=== PATIENT | male | born 1965 | race Caucasian/White ===

== ENCOUNTER 2021-02-01 08:35 | Outpatient (REF) | payer OTHER, SELFPAY ==
[2021-02-01 09:15] LABS: Hematocrit 44.9 % (42-52); Hemoglobin 15.6 g/dl (14.0-18.0); Mean Corpuscular HGB Conc 34.7 g/dl (31.0-36.0); Mean Corpuscular Hemoglobin 30.5 pg (27.0-33.0); Mean Corpuscular Volume 87.9 fL (80-98); Mean Platelet Volume 9.6 fL (9.4-12.4); Platelet Count 190 X10*3/uL (160-400); Red Blood Count 5.11 X10*6/uL (4.60-5.80); Red Cell Distribution Width 12.3 % (11.0-16.0); White Blood Count 6.4 X10*3/uL (4.8-10.8)
[2021-02-01 09:29] LABS: Glucose Urine UA NEG (NEG); Leukocyte Esterase Urine NEG (NEG); Nitrite Urine NEG (NEG); Specific Gravity - Urine >= 1.030 (1.005-1.025); Urine Blood TRACE (NEG); Urine Ketones NEG (NEG); Urine Protein NEG (NEG-TRACE)
[2021-02-01 09:30] LABS: Appearance Urine CLEAR; Color Urine YELLOW
[2021-02-01 09:46] LABS: Mucus Urine 1+ /LPF; RBC Urine 0-2 /HPF (0); WBC Urine 0-2 /HPF (0-4)
[2021-02-01 09:52] LABS: Alanine Aminotransferase 47 U/L (0-40); Albumin Level 4.3 g/dL (3.5-5.0); Alkaline Phosphatase 67 U/L (39-117); Anion Gap 11 (12-20); Aspartate Amino Transferase 23 U/L (5-37); Bilirubin Direct 0.3 mg/dL (0.0-0.5); Bilirubin Total 0.8 mg/dL (0.0-1.0); Blood Urea Nitrogen 23 mg/dL (9-16); C Reactive Protein 0.77 mg/dL (< or = 0.50); Calcium 9.1 mg/dL (8.4-10.2); Carbon Dioxide 28 mmol/L (22-29); Chloride 106 mmol/L (96-108); Cholesterol 196 mg/dL; Estimated Glomerular Filt Rate > 60; Glucose Random 108 mg/dL (60-115); HDL Cholesterol 43 mg/dL; LDL Cholesterol Calculated 119 mg/dl; Potassium 4.3 mmol/L (3.3-5.1); Sodium 141 mmol/L (135-145); Total Protein 6.8 g/dL (6.5-8.0); Triglycerides 174 mg/dL
[2021-02-07 16:47] LABS: Testosterone, Total 325 ng/dL (250-1100)
== END 2021-02-01 08:36 | disposition home or self-care (01) ==
LOC: HO.LAB 08:35
PROVIDERS: PCP Internal Medicine; Visit Provider Internal Medicine
DX: H46.9 Unspecified optic neuritis (principal); I10 Essential (primary) hypertension; R53.83 Other fatigue
CPT/HCPCS: 36415; 80048; 80061; 80076; 81001; 84402; 84403; 84443; 85027; 86140

== ENCOUNTER 2021-12-27 14:49 | Outpatient (REF) | payer OTHER, SELFPAY ==
[2021-12-27 15:50] LABS: Hematocrit 43.5 % (42.0-52.0); Hemoglobin 14.9 g/dl (14.0-18.0); Mean Corpuscular HGB Conc 34.3 g/dl (31.0-36.0); Mean Corpuscular Hemoglobin 30.7 pg (27.0-33.0); Mean Corpuscular Volume 89.5 fL (80.0-98.0); Platelet Count 180 X10*3/uL (160-400); Red Blood Count 4.86 X10*6/uL (4.60-5.80); Red Cell Distribution Width 12.9 % (11.0-16.0); White Blood Count 7.2 X10*3/uL (4.8-10.8)
[2021-12-27 16:11] LABS: Alanine Aminotransferase 17 U/L (0-40); Albumin Level 4.3 g/dL (3.5-5.0); Alkaline Phosphatase 58 U/L (39-117); Anion Gap 13 (12-20); Aspartate Amino Transferase 17 U/L (5-37); Bilirubin Direct 0.5 mg/dL (0.0-0.5); Bilirubin Total 1.6 mg/dL (0.0-1.0); Blood Urea Nitrogen 16 mg/dL (9-16); Carbon Dioxide 25 mmol/L (22-29); Chloride 105 mmol/L (96-108); Cholesterol 188 mg/dL; Estimated Glomerular Filt Rate > 60; Glucose Random 82 mg/dL (60-115); HDL Cholesterol 50 mg/dL; LDL Cholesterol Calculated 121 mg/dl; Potassium 4.1 mmol/L (3.3-5.1); Sodium 139 mmol/L (135-145); Total Protein 6.6 g/dL (6.5-8.0); Triglycerides 86 mg/dL
[2021-12-27 16:32] LABS: Thyroid Stimulating Hormone 0.98 uIU/mL (0.32-4.0)
[2021-12-27 18:09] LABS: Appearance Urine CLEAR; Color Urine YELLOW; Glucose Urine UA NEG (NEG); Leukocyte Esterase Urine NEG (NEG); Nitrite Urine NEG (NEG); Urine Blood NEG (NEG); Urine Ketones NEG (NEG); Urine Protein NEG (NEG-TRACE)
== END 2021-12-27 14:50 | disposition home or self-care (01) ==
LOC: HO.LAB 14:49
PROVIDERS: PCP Internal Medicine; Visit Provider Internal Medicine
DX: I10 Essential (primary) hypertension (principal)
CPT/HCPCS: 36415; 80048; 80061; 80076; 81003; 84443; 85027

== ENCOUNTER 2022-07-04 15:51 | Outpatient (REF) | payer OTHER, SELFPAY ==
[2022-07-04 17:57] LABS: Appearance Urine Clear; Color Urine Yellow; Glucose Urine UA Negative (Negative); Leukocyte Esterase Urine Trace (Negative); Nitrite Urine Negative (Negative); PH 5.5 (5.0-9.0); UMIC TRIGGER UA YES; Urine Blood Negative (Negative); Urine Ketones Negative (Negative); Urine Protein Negative (Neg-Trace)
[2022-07-04 18:03] LABS: Bacteria Urine None Seen (None Seen); Hyaline Casts Urine 0-2 /LPF (0-2); RBC Urine 0-2 /HPF (0-2); Squamous Epithelial Cell Urine 0-2 /HPF (0-2); WBC Urine 0-5 /HPF (0-5)
[2022-07-04 18:19] LABS: Alanine Aminotransferase 25 U/L (0-40); Albumin Level 4.5 g/dL (3.5-5.0); Alkaline Phosphatase 66 U/L (39-117); Anion Gap 15 (12-20); Aspartate Amino Transferase 19 U/L (5-37); Bilirubin Direct 0.4 mg/dL (0.0-0.5); Bilirubin Total 1.4 mg/dL (0.0-1.0); Blood Urea Nitrogen 17 mg/dL (9-16); Calcium 9.3 mg/dL (8.4-10.2); Carbon Dioxide 28 mmol/L (22-29); Chloride 101 mmol/L (96-108); Cholesterol 215 mg/dL; Estimated Glomerular Filt Rate > 60; Glucose Random 83 mg/dL (60-115); HDL Cholesterol 47 mg/dL; LDL Cholesterol Calculated 142 mg/dl; Sodium 140 mmol/L (135-145); Total Protein 7.1 g/dL (6.5-8.0); Triglycerides 130 mg/dL
[2022-07-04 18:24] LABS: Hemoglobin 15.5 g/dl (14.0-18.0); Mean Corpuscular HGB Conc 34.4 g/dl (31.0-36.0); Mean Corpuscular Hemoglobin 30.8 pg (27.0-33.0); Mean Corpuscular Volume 89.3 fL (80.0-98.0); Mean Platelet Volume 9.9 fL (9.4-12.4); Platelet Count 203 X10*3/uL (160-400); Red Blood Count 5.04 X10*6/uL (4.60-5.80); Red Cell Distribution Width 12.4 % (11.0-16.0); White Blood Count 7.6 X10*3/uL (4.8-10.8)
[2022-07-04 18:35] LABS: Prostate Specific Antigen Scr 2.96 ng/mL (<0.05-4.0); Thyroid Stimulating Hormone 2.18 uIU/mL (0.32-4.0)
== END 2022-07-04 15:52 | disposition home or self-care (01) ==
LOC: HO.LAB 15:51
PROVIDERS: PCP Internal Medicine; Visit Provider Internal Medicine
DX: Z00.00 Encounter for general adult medical examination without abnormal findings (principal); Z12.5 Encounter for screening for malignant neoplasm of prostate; I10 Essential (primary) hypertension
CPT/HCPCS: 36415; 80048; 80061; 80076; 81001; 84153; 84443; 85027

== ENCOUNTER 2022-07-19 10:27 | Day surgery (SDC) | payer OTHER, SELFPAY ==
[2022-07-19 10:40] VITALS: BMI 29.2
[2022-07-19 10:44] VITALS: BP 120/93; PULSE 85; RESP 20; TEMP 36.5; O2SAT 96
[2022-07-19] MEDS: Lactated Ringers 1,000 ML 80 ML IVCONT (10:59)
[2022-07-19 12:35] VITALS: BP 103/61; PULSE 71; RESP 17; TEMP 36.6; O2SAT 97
--- NOTE | 2022-07-19 12:36 | P.BOP_ITS ---
Brief Operative Note Date of Service: 07/19/22 Pre-op diagnosis: Screening Post-op diagnosis: other (Colon polyp) Procedure: Colonoscopy to the cecum and TI with hot snare polypectomy Surgeon: Ranjit Zhou Anesthesia: MAC Was an [employer] Supervisor used for this Procedure?: No Estimated blood loss (mL): 0 Pathology: other (A. Ascending colon polyp) Condition: stable Disposition: PACU
[2022-07-19 12:50] VITALS: BP 114/87; PULSE 77; RESP 16; TEMP 36.6; O2SAT 97
--- NOTE | 2022-07-19 14:12 | OP_ITS ---
SURGEON: Ranjit Zhou MD INDICATIONS: The patient presents for evaluation of colorectal cancer screening and prior history of colon polyps. Full consent has been obtained from him for this, including risks of bleeding and perforation. PREOPERATIVE DIAGNOSIS: POSTOPERATIVE DIAGNOSIS: PROCEDURE PERFORMED: Colonoscopy to the cecum and terminal ileum with hot snare polypectomy. ESTIMATED BLOOD LOSS: COMPLICATIONS: ANESTHESIA: Monitored anesthesia care. ASSISTANTS: SPECIMENS: PREOPERATIVE DIAGNOSES: Colorectal cancer screening and prior history of colon polyps. POSTOPERATIVE DIAGNOSES: Colorectal cancer screening and prior history of colon polyps, diverticulosis and internal hemorrhoids. DESCRIPTION OF PROCEDURE: The patient was placed in the left lateral decubitus position. The digital rectal exam revealed no abnormalities. The Olympus video pediatric colonoscope was entered into the rectum and advanced easily to the cecum. Once in the cecum, I did identify normal-appearing cecal pouch with appendiceal orifice and a normal-appearing ileocecal valve. The terminal ileum was cannulated and it appeared normal. The scope was withdrawn back in the colon. The entire cecum and ileocecal valve appeared normal. The scope was slowly withdrawn assessing all mucosal surface carefully. Preparation was excellent. In the ascending colon, there was an approximately 8 mm polyp which was removed by hot snare polypectomy and recovered by suction. The polypectomy site appeared clean, without any sign of residual polyp nor bleeding. I did not visualize any other polyps, colitis nor angiodysplasia. There was a mild amount of sigmoid diverticulosis. In the rectum, the scope was retroflexed visualizing small internal hemorrhoids, but no other pathology. The rectal mucosa appeared normal. The scope was straightened. Of note, between 20 and 30 cm were 2 previously placed submucosal ink kidd. The scope was withdrawn from the patient. He tolerated the procedure well and was returned to the recovery area in stable condition. IMPRESSION: 1. Colon polyps. 2. Diverticulosis. 3. Internal hemorrhoids. PLAN: The results of the pathology will be checked. I would recommend repeat colonoscopy in 3 years for further surveillance. He was advised to not to use any aspirin or NSAIDs for 1 week. MD PATRICIO Dunaway/SOLIS / [phone]
== END 2022-07-19 13:28 | disposition home or self-care (01) ==
PROVIDERS: PCP Internal Medicine; Visit Provider Internal Medicine
PROC: 0DJD8ZZ Inspection of Lower Intestinal Tract, Via Natural or Artificial Opening Endoscopic (ICD-10-PCS; CPT 45378; principal; 2022-07-19 11:40)
DX: Z12.11 Encounter for screening for malignant neoplasm of colon (principal); Z86.010 Personal history of colon polyps; D12.2 Benign neoplasm of ascending colon; K57.30 Diverticulosis of large intestine without perforation or abscess without bleeding; K64.8 Other hemorrhoids; I10 Essential (primary) hypertension; Z79.899 Other long term (current) drug therapy
CPT/HCPCS: 45385; 88305

== ENCOUNTER 2023-01-02 15:06 | Outpatient (AMB) | payer OTHER, SELFPAY ==
--- NOTE | 2023-01-02 15:08 | A.OFFPC_ITS ---
Vital Signs 01/02/23 15:11 Height 5 ft 11 in Weight 234 lb 2 oz BMI 32.7 BP 110/74 Blood Pressure Location Lt brachial Position Sitting Pulse 82 Pulse Source Pulse Oximeter Pulse Oximetry (%) 92 Oxygen Delivery Method Room Air Intake Visit Reasons: 6mth f/u Intake Note: Patient is here to follow up on HTN. Emergency Room Clinician Required: No Product Consultant: Not Required per policy Accompanied by: Self / Same As Patient Allergies No Known Allergies Allergy (Verified 01/03/23 07:43) Medication List - Last Reconciled 01/03/23 by Charly Heredia MD atorvastatin 10 mg PO BEDTIME lisinopril 10 mg PO DAILY meloxicam 15 mg PO DAILY rzdwnkll-[id number]-MH 3.5-10,000-1 mg/mL-unit/mL-% 4 drps otic (ears) Q8H Tobacco use date assessed: 01/02/23 Dental Screening Dental Screen Date: 01/02/23 Did you have a dental visit in the last 12 months?: Yes Did you have a dental problem in the last 6 months where you did not have access to dental care?: No Was dental information given to patient?: Patient has dentist HPI 6mth f/u HPI Details 57-year-old male presents to the office to discuss his chronic medical issues. Patient is now complaining of pain in the left hand in the past 2 weeks. Does not recall any fall or injury. Morning stiffness present. Nonspecific pain in the joints all over. Fatigue symptoms present. Right ear is blocked. He has swelling and tenderness just outside the ear canal. Patient vision has been stable. Right eye cannot be corrected. Optic neuritis is stable. [facility] Medical History Bilateral hearing loss Fatigue Hypertension Left optic neuritis Lipoma of anterior chest wall Lyme disease Osteoarthritis Sigmoidoscopy exam Surgical History H/O rectal polypectomy History of ankle surgery Family History Father Leukemia Mother No problems noted. Brother Substance use disorder Social History Housing: House Alcohol intake: current Alcohol intake frequency: a few times a week Patient Tobacco Use Status: Never used Tobacco e-Cigarette/Vaping Use: Never Used Second Hand Smoke Exposure: No service: No Current occupational status: employed Cognitive needs: No Hearing needs: No Vision needs: No Questionnaire Thrive Questionnaire Date Thrive assessed: 07/04/22 MEGHNA-7 AMB Questionnaire MEGHNA-7 Date MEGHNA - 7 assessed: 07/04/22 Source: Developed by Drs. Ranjit Fortune, Elli Lopez, Robinson Watkins and colleagues, with an educational carolann from [employer]. Physical exam (Primary Care) Vital Signs: Last Vital Signs Pulse 82 01/02/23 15:11 BP 110/74 01/02/23 15:11 Pulse Ox 92 01/02/23 15:11 Oxygen Delivery Method Room Air 01/02/23 15:11 BMI result Body Mass Index 32.7 Tobacco/Smoking Status: Tobacco use Status Tobacco use date assessed 01/02/23 01/02/23 15:15 Patient Tobacco Use Status Never used Tobacco 01/02/23 15:09 e-Cigarette/Vaping Use Never Used 01/02/23 15:09 Thrive Assessment: Date of Thrive Assessment Date Thrive assessed 07/04/22 01/02/23 15:09 Const General: cooperative, healthy appearing and comfortable HENNC Other: Right ear: The opening of the ear canal is swollen and slightly tender. Tympanic membrane is visualized. Ear canal appears slightly congested. Head: Yes normal to inspection and Yes atraumatic Eyes General: appearance normal, both eyes and all related structures Neck Neck: Yes normal visual inspection and Yes full ROM Chest Other: Chest: Small lump just beneath the right clavicle. Margins are indeterminate and slightly movable. Soft to firm consistency. Nontender. Chest palpation & inspection: normal inspection of the chest Resp Effort & Inspection: normal respiratory effort Auscultation: clear to auscultation bilaterally Cardio Jugular venous distension: no JVD Palpation: normal PMI Rate: regular rate Heart sounds: S1 normal heart sound present and S2 normal heart sound present GI Palpation (GI): Soft to palpation and No hepatosplenomegaly present Extrem General: Yes normal to inspection and Yes full ROM Assessment and Plan Assessment & Plan (1) Left optic neuritis: Code(s): H46.9 - Unspecified optic neuritis Plan: Condition is stable. (2) Hypertension: Code(s): I10 - Essential (primary) hypertension Qualifiers: Hypertension type: unspecified Qualified Code(s): I10 - Essential (primary) hypertension Plan: Blood pressure is stable. Continue medications same dosage. (3) Osteoarthritis: Code(s): M19.90 - Unspecified osteoarthritis, unspecified site Plan: New symptoms could represent osteoarthritis. Patient was advised to take anti- inflammatories till a rheumatology appointment is obtained. (4) Lyme disease: Code(s): A69.20 - Lyme disease, unspecified Plan: No new sequelae. (5) Lipoma of anterior chest wall: Code(s): D17.1 - Benign lipomatous neoplasm of skin and subcutaneous tissue of trunk Plan: Swelling on the chest appears to be a lipoma. An ultrasound of the swelling will be done to confirm the diagnosis. Possible excision after the diagnosis is confirmed. Orders: Orders Basic Metabolic Panel 01/02/23 D17.1 - Benign lipomatous neoplasm of skin and subcutaneous tissue of trunk, H46.9 - Unspecified optic neuritis, I10 - Essenti al (primary) hypertension, M19.90 - Unspecified osteoarthritis, unspecified site C Reactive Protein 01/02/23 D17.1 - Benign lipomatous neoplasm of skin and subcutaneous tissue of trunk, H46.9 - Unspecified optic neuritis, I10 - Essential (primary) hypertension, M19.90 - Unspecified osteoarthritis, unspecified site US chest 01/02/23 D17.1 - Benign lipomatous neoplasm of skin and subcutaneous tissue of trunk, H46.9 - Unspecified optic neuritis, I10 - Essential (primary) hypertension, M19.90 - Unspecified osteoarthritis, unspecified site Lipid Panel 01/02/23 D17.1 - Benign lipomatous neoplasm of skin and subcutaneous tissue of trunk, H46.9 - Unspecified optic neuritis, I10 - Essential (primary) hypertension, M19.90 - Unspecified osteoarthritis, unspecified site Liver Panel 01/02/23 D17.1 - Benign lipomatous neoplasm of skin and subcutaneous tissue of trunk, H46.9 - Unspecified optic neuritis, I10 - Essential (primary) hypertension, M19.90 - Unspecified osteoarthritis, unspecified site Thyroid Stimulating Hormone 01/02/23 D17.1 - Benign lipomatous neoplasm of skin and subcutaneous tissue of trunk, H46.9 - Unspecified optic neuritis, I10 - Essential (primary) hypertension, M19.90 - Unspecified osteoarthritis, unspecified site Complete Blood Count no Diff 01/02/23 D17.1 - Benign lipomatous neoplasm of skin and subcutaneous tissue of trunk, H46.9 - Unspecified optic neuritis, I10 - Essential (primary) hypertension, M19.90 - Unspecified osteoarthritis, unspecified site UA and rflx microscopic 01/02/23 D17.1 - Benign lipomatous neoplasm of skin and subcutaneous tissue of trunk, H46.9 - Unspecified optic neuritis, I10 - Essential (primary) hypertension, M19.90 - Unspecified osteoarthritis, unspecified site Referrals Rheumatology Referral A69.20 - Lyme disease, unspecified, H46.9 - Unspecified optic neuritis, M19.90 - Unspecified osteoarthritis, unspecified site Medications: New dleyreno-zyptgyzuv-ZI 3.5-10,000-1 mg/mL-unit/mL-% 4 drps otic (ears) Q8H 10 mL 0RF meloxicam 15 mg PO DAILY 14 tabs 0RF Coding Level of Care Code Est Pt Level 4 (41702) Diagnoses Left optic neuritis H46.9 Hypertension I10 Hypertension type: unspecified Osteoarthritis M19.90 Lyme disease A69.20 Lipoma of anterior chest wall D17.1
[2023-01-02 15:11] VITALS: BP 110/74; PULSE 82; O2SAT 92; BMI 32.7
== END 2023-01-02 15:56 | disposition home or self-care (01) ==
PROVIDERS: PCP Internal Medicine; Visit Provider Internal Medicine
DX: H46.9 Unspecified optic neuritis (principal); I10 Essential (primary) hypertension; M19.90 Unspecified osteoarthritis, unspecified site; A69.20 Lyme disease, unspecified; D17.1 Benign lipomatous neoplasm of skin and subcutaneous tissue of trunk
CPT/HCPCS: 99214

== ENCOUNTER 2023-01-02 16:02 | Outpatient (REF) | payer OTHER, SELFPAY ==
[2023-01-02 18:09] LABS: Hematocrit 44.9 % (42.0-52.0); Hemoglobin 15.1 g/dl (14.0-18.0); Mean Corpuscular HGB Conc 33.6 g/dl (31.0-36.0); Mean Corpuscular Hemoglobin 30.4 pg (27.0-33.0); Mean Corpuscular Volume 90.5 fL (80.0-98.0); Mean Platelet Volume 10.3 fL (9.4-12.4); Platelet Count 180 X10*3/uL (160-400); Red Blood Count 4.96 X10*6/uL (4.60-5.80); Red Cell Distribution Width 12.5 % (11.0-16.0)
[2023-01-02 18:41] LABS: Alanine Aminotransferase 26 U/L (0-40); Albumin Level 4.5 g/dL (3.5-5.0); Alkaline Phosphatase 60 U/L (39-117); Anion Gap 18 (12-20); Aspartate Amino Transferase 19 U/L (5-37); Bilirubin Direct 0.4 mg/dL (0.0-0.5); Bilirubin Total 1.2 mg/dL (0.0-1.0); Blood Urea Nitrogen 24 mg/dL (9-16); C Reactive Protein 0.27 mg/dL (< or = 0.50); Calcium 9.1 mg/dL (8.4-10.2); Carbon Dioxide 22 mmol/L (22-29); Chloride 104 mmol/L (96-108); Cholesterol 161 mg/dL; Estimated Glomerular Filt Rate > 60; Glucose Random 81 mg/dL (60-115); HDL Cholesterol 51 mg/dL; LDL Cholesterol Calculated 93 mg/dl; Potassium 3.6 mmol/L (3.3-5.1); Sodium 140 mmol/L (135-145); Total Protein 7.3 g/dL (6.5-8.0); Triglycerides 88 mg/dL
[2023-01-02 18:56] LABS: Thyroid Stimulating Hormone 2.24 uIU/mL (0.32-4.0)
[2023-01-02 19:02] LABS: Appearance Urine Clear; Color Urine Yellow; Glucose Urine UA Negative (Negative); Leukocyte Esterase Urine Negative (Negative); Nitrite Urine Negative (Negative); PH 5.5 (5.0-9.0); Specific Gravity - Urine 1.025 (1.005-1.025); Urine Blood Negative (Negative); Urine Ketones Negative (Negative); Urine Protein Negative (Neg-Trace)
== END 2023-01-02 16:03 | disposition home or self-care (01) ==
LOC: HO.LAB 16:02
PROVIDERS: PCP Internal Medicine; Visit Provider Internal Medicine
DX: M19.90 Unspecified osteoarthritis, unspecified site (principal); D17.1 Benign lipomatous neoplasm of skin and subcutaneous tissue of trunk; H46.9 Unspecified optic neuritis; I10 Essential (primary) hypertension
CPT/HCPCS: 36415; 80048; 80061; 80076; 81003; 84443; 85027; 86140

== ENCOUNTER 2023-01-16 14:49 | Outpatient (REF) | payer OTHER, SELFPAY ==
--- NOTE | ~2023-01-16 | US_ITS ---
EXAMINATION: US CHEST CLINICAL INFORMATION: Anterior chest wall lipoma. Upper right chest infraclavicular mass. COMPARISON: Chest radiograph dated 06/15/2018. TECHNIQUE: Grayscale, Doppler, and cine images were obtained at the right upper chest. FINDINGS: In the region of the patient's palpable finding there is an ovoid, encapsulated focus which measures 4.0 x 1.8 x 3.6 cm in the subcutaneous tissues. This demonstrates heterogeneous echogenicity, similar to the adjacent fat. No significant Doppler detectable vascular flow. No additional soft tissue mass or fluid collection. US/US chest IMPRESSION: Probable lipoma in the region of the patient's palpable findings measuring up to 4.0 cm. If there is significant interval increase in size or focal symptomatology, cross-sectional imaging such as MRI without and with contrast could help further evaluate.
== END 2023-01-16 14:50 | disposition home or self-care (01) ==
LOC: HO.US 14:49
PROVIDERS: PCP Internal Medicine; Visit Provider Internal Medicine
DX: M19.90 Unspecified osteoarthritis, unspecified site (principal); D17.1 Benign lipomatous neoplasm of skin and subcutaneous tissue of trunk; H46.9 Unspecified optic neuritis; I10 Essential (primary) hypertension
CPT/HCPCS: 76604

== ENCOUNTER 2023-02-24 09:29 | Outpatient (AMB) | payer OTHER, SELFPAY ==
--- NOTE | 2023-02-24 09:52 | MHC.OFFVIS ---
Intake Vital Signs 02/24/23 09:53 Height 5 ft 11 in Weight 239 lb 13.807 oz BMI 33.5 BP 146/92 H Blood Pressure Location Rt brachial Position Sitting Pulse 76 Pulse Source Pulse Oximeter Temp 98.3 F Temp Source Skin Pulse Oximetry (%) 96 Oxygen Delivery Method Room Air Intake Visit Reasons: Lyme/OA Intake Note: New patient here for Lyme/OA. c/o morning right shoulder, morning mary leg R>L. (all are on and off), mary hand pain. Division [employer] Supervisor Required: No Accompanied by: Self / Same As Patient Allergies No Known Allergies Allergy (Verified 02/24/23 09:52) HPI HPI Comments History of Present Illness Details Patient presents for evaluation of right shoulder and leg pain. For about 2 or 3 months now he has been having some pain in the right shoulder. It seems to come on when he lies on the shoulder at night or lifts the arm up overhead. 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 There was no discrete injury noted of the knees however. The leg pain is a bit unusual. This pain seems to come on only at night. He notes that pain in the anterior knee and calf region. The ankles usually are slightly swollen at the end of his day. The nighttime leg pains are not associated with numbness, swelling or spasm. He does not notice any leg pain during the daytime at all. He does not have any foot numbness but thinks the feet are swollen at the end of the day.. He has a brother with ankylosing spondylitis. He is currently taking some meloxicam for symptoms with questionable benefit. In 2019 he was hospitalized at [facility] with sudden onset of almost total visual loss in the right eye. The child care associate thought he had optic neuritis. Workup in the hospital did not conclude that he had multiple sclerosis in spite of MRIs of the brain, thoracic spine and lumbar spine regions. He also had a lumbar puncture. There was a positive IgM Western blot test for Lyme disease and almost positive IgG bands. He was apparently treated at that point with prednisone and antibiotics. The right eye visual loss did not improve. He has not had subsequent problems with paresthesias or numbness or weakness in the extremities. The main sequelae he has from his Lyme disease is the visual loss and his ongoing low stamina. [facility] Medical History Bilateral hearing loss Fatigue Hypertension Left optic neuritis Lipoma of anterior chest wall Lyme disease Osteoarthritis Sigmoidoscopy exam Surgical History History of ankle surgery H/O rectal polypectomy Family History (Updated 02/24/23 @ 09:59 by BRYAN Dowling) Father Leukemia Mother Arthritis Brother Substance use disorder Arthritis Sister Arthritis Social History (Updated 02/24/23 @ 09:59 by BRYAN Dowling) Household Members: None Housing: House Alcohol intake: current Alcohol intake frequency: a few times a week Patient Tobacco Use Status: Never used Tobacco e-Cigarette/Vaping Use: Never Used Second Hand Smoke Exposure: No service: No Current occupational status: employed 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 Negative for appetite change, fever, chills, malaise Eyes Details: Occasional right occipital headache. Sometimes this is associated with some neck pain. Negative for vision change, dry eyes and dizziness ENT Details: Occasional tinnitus. Negative for hearing change, oral ulcer, nose bleeds and oral dryness. Card Details: Negative chest pain, edema and syncope Resp Details: Negative for SOB, cough and wheezing GI Details: Negative indigestion/heartburn, nausea, abdominal pain, bowel changes, diarrhea, constipation and bloody stool. Details: Negative for dysuria, hematuria, nocturia, decreased force/flow and genital discharge Skin/Breast Details: Negative for itching, rash, hives, Raynaud's symptoms, sun sensitivity, and skin cancer Neuro Details: Negative for epilepsy, palsy, stroke, changes in speech, tingling and weakness Psych Details: Negative for anxiety, depression and stress Endo Details: Negative for polyuria and polydypsia Andrea/Lymph Details: Negative for excessive bruising or bleeding. Physical Exam Vital Signs: Last Vital Signs Temp 98.3 F 02/24/23 09:53 Pulse 76 02/24/23 09:53 BP 146/92 H 02/24/23 09:53 Pulse Ox 96 02/24/23 09:53 Oxygen Delivery Method Room Air 02/24/23 09:53 BMI result Body Mass Index 33.5 APPEARANCE: Patient in no acute distress EYES no redness, pupils equal and reactive to light, eyelids normal EARS: External ear normal, canal clear and tympanic membrane normal. NOSE/SINUS: Airflow through both nares, no nasal discharge, no bleeding THROAT: Oral mucosa moist, no ulcerations NECK: No thyromegaly or masses, no adenopathy, trachea midline. HEART: Regulrar rhythm, S1-S2 heard, no murmurs, rubs or gallops. LUNG: Clear to percussion and auscultation ABD: Normal bowel sounds, no organomegaly, masses or tenderness. EXTREMITIES: No edema, no calf tenderness, normal peripheral pulses. NEURO: Oriented and alert x3. No focal weakness. Reflexes symmetric. Gait normal. SKIN: No inflammatory or neoplastic lesions. Normal color and turgor JOINT EXAM:.?? Cervical Spine:.? Full range of motion without pain; no tenderness. Thoracic Spine:.? No scoliosis.? No tenderness on palpation. Lumbar Spine:.? Alignment normal.? Full range of motion without pain, no tenderness. Chest Wall:.? There is a soft tissue lump in the right upper chest region anteriorly. This has been echoed and seems to be a lipoma. It is not tender. Elsewhere no tenderness, swelling, increased warmth or erythema. Hands:.? Normal pain-free range of motion without tenderness, swelling, increased warmth or erythema. Able to make a full fist and has a good net finisher strength. Wrists:.? Normal pain-free range of motion without tenderness, swelling, increased warmth or erythema. Elbows:. Normal pain-free range of motion without tenderness, swelling, increased warmth or erythema. Shoulders:.? Right: There is mild pain with abduction at 135 degrees or with extremes of internal external rotation. There is some minimal anterior tenderness without any adenopathy, swelling or weakness. Left:? Full range of motion without pain. No tenderness, weakness, swelling, increased warmth or erythema. Hips:.? Full range of motion without pain. Hip bursa:.? No tenderness. Knees:.?? Normal pain-free range of motion without tenderness, swelling, increased warmth or erythema.? There is no effusion or crepitation Ankles:.? Normal pain-free range of motion without tenderness, swelling, increased warmth or erythema. Feet:.? Normal pain-free range of motion without tenderness, swelling, increased warmth or erythema. Tender points:.? No tenderness to digital palpation at the occiput, trapezius, second rib, lateral epicondyle, knees, greater trochanter and gluteal area bilaterally. ? 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 We will get an x-ray of the shoulder and consider physical therapy and or local injection for that problem. The leg pain is a bit more unusual. It is episodic and not related to physical activities so this chances for any structural failure in the legs seems unusual. I will check some x-rays of those regions. We will also check some inflammatory markers. I did review his [facility] at [facility]. Again it sounds like he did have optic neuritis but search for demyelinating disease was negative. There was a questionably positive Lyme disease antibody test for which he was treated with antibiotics. Unfortunately that did not result in any improvement. He has had no further eye problems. We will get back to him with the results of his studies. Review of the record, his history, his exam discussion of the findings took 48 minutes. Orders: Orders XR shoulder RT min 2V Today M25.511 - Pain in right shoulder XR knee LT 3V Today M79.604 - Pain in right leg, M79.605 - Pain in left leg XR knee RT 3V Today M79.604 - Pain in right leg, M79.605 - Pain in left leg Erythrocyte Sedimentation Rate Today M25.511 - Pain in right shoulder, M79.604 - Pain in right leg, M79.605 - Pain in left leg C Reactive Protein Today M25.511 - Pain in right shoulder, M79.604 - Pain in right leg, M79.605 - Pain in left leg Coding Level of Care Code New Pt Level 4 (36910) Diagnoses Shoulder pain, right M25.511 Leg pain, bilateral M79.604; M79.605
[2023-02-24 09:53] VITALS: BP 146/92; PULSE 76; TEMP 36.8; O2SAT 96; BMI 33.5
== END 2023-02-24 11:17 | disposition home or self-care (01) ==
PROVIDERS: PCP Internal Medicine; Visit Provider Internal Medicine Rheumatology
DX: M25.511 Pain in right shoulder (principal); M79.604 Pain in right leg; M79.605 Pain in left leg
CPT/HCPCS: 99204

== ENCOUNTER 2023-02-24 09:29 | Outpatient (REF) | payer OTHER, SELFPAY ==
--- NOTE | ~2023-02-24 | XR_ITS ---
EXAMINATION: XR RIGHT SHOULDER, RIGHT KNEE, LEFT KNEE CLINICAL INFORMATION: Pain in right shoulder and bilateral legs COMPARISON: None TECHNIQUE: 3 views of the right shoulder. 3 views of each knee. FINDINGS: RIGHT SHOULDER: Moderate degenerative changes in the acromioclavicular joint with joint space narrowing and hypertrophic change. Glenohumeral alignment preserved. No abnormal soft tissue calcifications identified adjacent to the humeral head. RIGHT KNEE: Small 4 mm sclerotic focus projecting over the proximal tibia may represent a bone island. Joint spaces are preserved. No significant joint effusion. Small quadriceps enthesophyte. Tiny posterior patellar osteophytes. LEFT KNEE: No significant joint effusion. Tiny posterior patellar and medial marginal osteophytes. Joint spaces are preserved. XR/XR knee LT 3V IMPRESSION: 1. Moderate degenerative changes in the acromioclavicular joint. 2. Minimal degenerative changes in the bilateral knees. Additional imaging with CT scan or MRI should be considered for better visualization as these modalities are much more sensitive for detection of fracture or other underlying pathology.
--- NOTE | ~2023-02-24 | XR_ITS ---
EXAMINATION: XR RIGHT SHOULDER, RIGHT KNEE, LEFT KNEE CLINICAL INFORMATION: Pain in right shoulder and bilateral legs COMPARISON: None TECHNIQUE: 3 views of the right shoulder. 3 views of each knee. FINDINGS: RIGHT SHOULDER: Moderate degenerative changes in the acromioclavicular joint with joint space narrowing and hypertrophic change. Glenohumeral alignment preserved. No abnormal soft tissue calcifications identified adjacent to the humeral head. RIGHT KNEE: Small 4 mm sclerotic focus projecting over the proximal tibia may represent a bone island. Joint spaces are preserved. No significant joint effusion. Small quadriceps enthesophyte. Tiny posterior patellar osteophytes. LEFT KNEE: No significant joint effusion. Tiny posterior patellar and medial marginal osteophytes. Joint spaces are preserved. XR/XR knee RT 3V IMPRESSION: 1. Moderate degenerative changes in the acromioclavicular joint. 2. Minimal degenerative changes in the bilateral knees. Additional imaging with CT scan or MRI should be considered for better visualization as these modalities are much more sensitive for detection of fracture or other underlying pathology.
--- NOTE | ~2023-02-24 | XR_ITS ---
EXAMINATION: XR RIGHT SHOULDER, RIGHT KNEE, LEFT KNEE CLINICAL INFORMATION: Pain in right shoulder and bilateral legs COMPARISON: None TECHNIQUE: 3 views of the right shoulder. 3 views of each knee. FINDINGS: RIGHT SHOULDER: Moderate degenerative changes in the acromioclavicular joint with joint space narrowing and hypertrophic change. Glenohumeral alignment preserved. No abnormal soft tissue calcifications identified adjacent to the humeral head. RIGHT KNEE: Small 4 mm sclerotic focus projecting over the proximal tibia may represent a bone island. Joint spaces are preserved. No significant joint effusion. Small quadriceps enthesophyte. Tiny posterior patellar osteophytes. LEFT KNEE: No significant joint effusion. Tiny posterior patellar and medial marginal osteophytes. Joint spaces are preserved. XR/XR shoulder RT min 2V IMPRESSION: 1. Moderate degenerative changes in the acromioclavicular joint. 2. Minimal degenerative changes in the bilateral knees. Additional imaging with CT scan or MRI should be considered for better visualization as these modalities are much more sensitive for detection of fracture or other underlying pathology.
== END 2023-02-24 09:30 | disposition home or self-care (01) ==
LOC: HO.XRAY 09:29
PROVIDERS: PCP Internal Medicine; Visit Provider Internal Medicine Rheumatology
DX: M25.511 Pain in right shoulder (principal); M79.605 Pain in left leg; M79.604 Pain in right leg; M19.90 Unspecified osteoarthritis, unspecified site
CPT/HCPCS: 73030; 73562

== ENCOUNTER 2023-02-24 11:27 | Outpatient (REF) | payer OTHER, SELFPAY ==
[2023-02-24 14:29] LABS: C Reactive Protein 0.31 mg/dL (< or = 0.50)
[2023-02-24 15:10] LABS: Erythrocyte Sedimentation Rate 3 MM/HR (0-15)
== END 2023-02-24 11:28 | disposition home or self-care (01) ==
LOC: HO.10HDL 11:27
PROVIDERS: Visit Provider Internal Medicine Rheumatology
DX: M25.511 Pain in right shoulder (principal); M79.604 Pain in right leg; M79.605 Pain in left leg
CPT/HCPCS: 36415; 85652; 86140

== ENCOUNTER 2023-07-03 15:30 | Outpatient (AMB) | payer OTHER, SELFPAY ==
--- NOTE | 2023-07-03 15:38 | MHC.PC.OV ---
Vital Signs 07/03/23 15:41 Height 5 ft 11 in Weight 244 lb BMI 34.0 BP 126/78 Blood Pressure Location Lt brachial Position Sitting Pulse 78 Pulse Source Pulse Oximeter Pulse Oximetry (%) 95 Oxygen Delivery Method Room Air Intake Visit Reasons: 6mth f/u Intake Note: Patient is here to follow up on HTN. 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: Not Required per policy Accompanied by: Self / Same As Patient Allergies No Known Allergies Allergy (Verified 07/04/23 09:26) Medication List - Last Reconciled 07/04/23 by Charly Heredia MD atorvastatin 10 mg PO BEDTIME lisinopril 10 mg PO DAILY gumzyxfz-mmlbdbqbi-UW 3.5-10,000-1 mg/mL-unit/mL-% 4 drps otic (ears) Q8H Tobacco use date assessed: 07/03/23 Dental Screening Dental Screen Date: 07/03/23 Did you have a dental visit in the last 12 months?: Yes Did you have a dental problem in the last 6 months where you did not have access to dental care?: No Was dental information given to patient?: Patient has dentist HPI 6mth f/u HPI Details 58-year-old male presents to the office to discuss his chronic medical conditions. Patient has been having intermittent right ear pain since the last office visit. Symptoms associated with itching and occasionally he feels the right ear is blocked. He has call the ear nose throat doctor and met him on a couple of occasions. He has been prescribed a year drop which promptly resolves his symptoms. He is requesting for a ear drop prescription, currently he has no symptoms. He is at baseline state of health and able to do activities of daily living. There has been no further deterioration in his vision. Since last office visit, he had the lesion on the left shoulder removed and as clinically suspected it was a lipoma. Not exercising. [facility] Medical History (Updated 07/04/23 @ 09:35 by Charly Heredia MD) Obesity (BMI 30.0-34.9) Otitis externa of both ears Osteoarthritis Bilateral hearing loss Lyme disease Left optic neuritis Fatigue Hypertension Surgical History History of ankle surgery H/O rectal polypectomy Family History Father Leukemia Mother Arthritis Brother Substance use disorder Arthritis Sister Arthritis Social History Household Members: None Housing: House Alcohol intake: current Alcohol intake frequency: a few times a week Patient Tobacco Use Status: Never used Tobacco e-Cigarette/Vaping Use: Never Used Second Hand Smoke Exposure: No service: No Current occupational status: employed 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 1. Little interest or pleasure in doing things: not at all 2. Feeling down, depressed, or hopeless: not at all 3. Trouble falling or staying asleep, or sleeping too much: not at all 4. Feeling tired or having little energy: not at all 5. Poor appetite or overeating: not at all 6. Feeling bad about yourself - or that you are a failure or have let yourself or your family down: not at all 7. Trouble concentrating on things, such as reading the newspaper or watching television: not at all 8. Moving or speaking so slowly that other people could have noticed. Or the opposite - being so fidgety or restless that you have been moving around a lot more than usual: not at all 9. Thoughts that you would be better off or of hurting yourself in some way: not at all Total score: 0 Depression Screening Interpretation: Negative Depression Screening Done: Yes Source: Developed by Drs. Ranjit Fortune, Elli Lopez, Robinson Watkins and colleagues, with an educational carolann from [employer]. Thrive Questionnaire Date Thrive assessed: 07/03/23 I am a: Patient What is your living situation today?: I have a steady place to live Within the past 12 months, did the food you bought not last and you didn't have the money to get more?: Never true Within the past 12 months, did you worry whether your food would run out before you got money to buy more?: Never true Do you have trouble paying for medicines?: No Do you have trouble getting transportation to medical appointments?: No Do you have trouble paying your heating and electricity bill?: No Do you have trouble taking care of your child, family member or friend?: No Do you have trouble with day-to-day activities such as bathing, preparing meals, shopping, managing finances, etc.?: No Are you currently unemployed and looking for a job?: No Are you interested in more education?: No Currently or been in a relationship where the following occur: no concerns reported THRIVE Score: 0 AUDIT C Alcohol Use Questionnaire (AUDIT-C) 1. How often do you have a drink containing alcohol?: 2-4 times a month 2. How many drinks containing alcohol do you have on a typical day when you are drinking?: 1 or 2 Total Score: 2 MEGHNA-7 AMB Questionnaire MEGHNA-7 Date MEGHNA - 7 assessed: 07/03/23 Feeling nervous, anxious, or on edge: 0 = Not at all Not being able to stop or control worryin = Not at all Worrying too much about different things: 0 = Not at all Trouble relaxin = Not at all Being so restless that it is hard to sit still: 0 = Not at all Becoming easily annoyed or irritable: 0 = Not at all Feeling afraid as if something awful might happen: 0 = Not at all Total MEGHNA-7 score (0-4 normal; 5-9 mild; 10-14 moderate; 15-21 severe): 0 Source: Developed by Drs. Ranjit Fortune, Elli Lopez, Robinson Watkins and colleagues, with an educational carolann from [employer]. Physical exam (Primary Care) Vital Signs: Last Vital Signs Pulse 78 07/03/23 15:41 BP 126/78 07/03/23 15:41 Pulse Ox 95 07/03/23 15:41 Oxygen Delivery Method Room Air 07/03/23 15:41 Care Plan Goal for BP management: Blood pressure is stable. Continue current medications. BMI result Body Mass Index 34.0 BMI Assessment/Plan discussion: High (1 lb per week weight loss suggested.) BMI High, discussed plan: lifestyle, weight reduction and dietary Tobacco/Smoking Status: Tobacco use Status Tobacco use date assessed 07/03/23 07/03/23 15:46 Patient Tobacco Use Status Never used Tobacco 07/03/23 15:46 e-Cigarette/Vaping Use Never Used 07/03/23 15:46 PHQ-9: PHQ-9 Score PHQ-9: Total score 0 07/03/23 16:13 Depression Screening Interpretation: Negative Thrive Assessment: Date of Thrive Assessment Date Thrive assessed 07/03/23 07/03/23 15:46 Currently or been in a relationship where the following occur: no concerns reported Const General: cooperative and healthy appearing Nutritional Appearance: well nourished Orientation/consciousness: patient oriented x3 Limitations: no limitations HENMT Head: Yes normal to inspection Eyes General: appearance normal, both eyes and all related structures Neck Neck: Yes normal visual inspection Chest Chest palpation & inspection: normal palpation of entire chest wall Resp Effort & Inspection: normal respiratory effort Neuro General: patient oriented x3 Assessment and Plan Assessment & Plan (1) Otitis externa of both ears: Code(s): H60.93 - Unspecified otitis externa, bilateral Plan: Cortisporin otic has been ordered. To use whenever patient has symptoms. (2) Lyme disease: Code(s): A69.20 - Lyme disease, unspecified Plan: Condition is stable. (3) Hypertension: Code(s): I10 - Essential (primary) hypertension Qualifiers: Hypertension type: unspecified Qualified Code(s): I10 - Essential (primary) hypertension Plan: Blood pressure is stable. Continue current medications. (4) Obesity (BMI 30.0-34.9): Code(s): E66.9 - Obesity, unspecified Plan: Counseling to lose weight suggested. Medications: New zpuinxgy-ikelsjdzq-FM 3.5-10,000-1 mg/mL-unit/mL-% 4 drps otic (ears) Q8H 10 mL 0RF Refilled lisinopril 10 mg PO DAILY 90 tabs 1RF Coding Level of Care Code Est Pt Level 4 (71403) Diagnoses Otitis externa of both ears H60.93 Lyme disease A69.20 Hypertension, unspecified type I10 Hypertension type: unspecified Obesity (BMI 30.0-34.9) E66.9
[2023-07-03 15:41] VITALS: BP 126/78; PULSE 78; O2SAT 95; BMI 34.0
== END 2023-07-03 16:18 | disposition home or self-care (01) ==
PROVIDERS: PCP Internal Medicine; Visit Provider Internal Medicine
DX: H60.93 Unspecified otitis externa, bilateral (principal); E66.9 Obesity, unspecified; Z68.34 Body mass index [BMI] 34.0-34.9, adult; A69.20 Lyme disease, unspecified; I10 Essential (primary) hypertension
CPT/HCPCS: 99214

== ENCOUNTER 2023-12-30 08:44 | Outpatient (REF) | payer OTHER, SELFPAY ==
[2023-12-30 09:25] LABS: Hematocrit 45.1 % (42.0-52.0); Hemoglobin 15.8 g/dl (14.0-18.0); Mean Corpuscular Hemoglobin 31.1 pg (27.0-33.0); Mean Corpuscular Volume 88.8 fL (80.0-98.0); Mean Platelet Volume 9.5 fL (9.4-12.4); Platelet Count 189 X10*3/uL (160-400); Red Blood Count 5.08 X10*6/uL (4.60-5.80); Red Cell Distribution Width 12.4 % (11.0-16.0); White Blood Count 6.9 X10*3/uL (4.8-10.8)
[2023-12-30 10:01] LABS: Alanine Aminotransferase 22 U/L (0-40); Albumin Level 4.4 g/dL (3.5-5.0); Alkaline Phosphatase 65 U/L (39-117); Anion Gap 15 (12-20); Aspartate Amino Transferase 17 U/L (5-37); Bilirubin Direct 0.3 mg/dL (0.0-0.5); Bilirubin Total 1.1 mg/dL (0.0-1.0); Blood Urea Nitrogen 24 mg/dL (9-16); C Reactive Protein 0.68 mg/dL (< or = 0.50); Calcium 9.1 mg/dL (8.4-10.2); Carbon Dioxide 25 mmol/L (22-29); Chloride 105 mmol/L (96-108); Cholesterol 192 mg/dL (<200); Estimated Glomerular Filt Rate > 60; Glucose Random 105 mg/dL (60-115); HDL Cholesterol 47 mg/dL (>40); LDL Cholesterol Calculated 108 mg/dL (<100); Potassium 3.8 mmol/L (3.3-5.1); Sodium 141 mmol/L (135-145); Total Protein 7.1 g/dL (6.5-8.0); Triglycerides 189 mg/dL (<150)
== END 2023-12-30 08:45 | disposition home or self-care (01) ==
LOC: HO.LAB 08:44
PROVIDERS: PCP Internal Medicine; Visit Provider Internal Medicine
DX: I10 Essential (primary) hypertension (principal)
CPT/HCPCS: 36415; 80048; 80061; 80076; 85027; 86140

== ENCOUNTER 2024-01-01 14:54 | Outpatient (AMB) | payer OTHER, SELFPAY ==
--- NOTE | 2024-01-01 15:23 | A.OFFPC_ITS ---
Vital Signs 01/01/24 15:24 Height 5 ft 11 in Weight 247 lb 6 oz BMI 34.5 BP 122/80 Blood Pressure Location Lt brachial Position Sitting Pulse 83 Pulse Source Pulse Oximeter Pulse Oximetry (%) 98 Oxygen Delivery Method Room Air Intake Visit Reasons: 6 month f/u Intake Note: Patient is here to follow up on OA, HTN. Corporate Buyer Required: No Mapping Engineer: Not Required per policy Accompanied by: Self / Same As Patient Allergies No Known Allergies Allergy (Verified 01/02/24 08:49) Medication List - Last Reconciled 01/02/24 by Charly Heredia MD atorvastatin 10 mg PO BEDTIME lisinopril 10 mg PO DAILY eiurewio-phxxtfios-YN 3.5-10,000-1 mg/mL-unit/mL-% 4 drps otic (ears) Q8H Tobacco use date assessed: 01/01/24 Dental Screening Dental Screen Date: 07/03/23 HPI 6 month f/u HPI Details 58-year-old male presents to the office to discuss his chronic medical conditions. Since last office visit, patient has been visiting a chiropractor for low back pain. After multiple visits the chiropractor ordered an MRI and patient brings in a report for me to evaluate. According to the report, patient has degenerative joint disease in the spine at several levels and minimal spinal stenosis especially in the foramen of several lumbar discs. His pain symptoms are minimal. He does not need any anti-inflammatories for the pain. Patient is also experiencing atypical chest pains. He describes them as episodic and lasts for a few seconds. Able to walk and exercise without any difficulty. Patient has a sedentary job or spends most of the time in the car commuting. Continues to have a healthy diet. [facility] Medical History (Updated 01/02/24 @ 08:54 by Charly Heredia MD) Hypercholesterolemia Obesity (BMI 30.0-34.9) Otitis externa of both ears Osteoarthritis Bilateral hearing loss Lyme disease Left optic neuritis Fatigue Hypertension Surgical History History of ankle surgery H/O rectal polypectomy Family History Father Leukemia Mother Arthritis Brother Substance use disorder Arthritis Sister Arthritis Social History Household Members: None Housing: House Alcohol intake: current Alcohol intake frequency: a few times a week Patient Tobacco Use Status: Never used Tobacco e-Cigarette/Vaping Use: Never Used Second Hand Smoke Exposure: No service: No Current occupational status: employed 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 Ranjit Fortune, Elli Lopez, Robinson Watkins and colleagues, with an educational carolann from [employer]. Physical exam (Primary Care) Vital Signs: Last Vital Signs Pulse 83 01/01/24 15:24 BP 122/80 01/01/24 15:24 Pulse Ox 98 01/01/24 15:24 Oxygen Delivery Method Room Air 01/01/24 15:24 BMI result Body Mass Index 34.5 BMI Assessment/Plan discussion: High (Patient was counseled on exercise and diet. 1 lb per week weight loss suggested.) BMI High, discussed plan: lifestyle, weight reduction and dietary Tobacco/Smoking Status: Tobacco use Status Tobacco use date assessed 01/01/24 01/01/24 15:27 Patient Tobacco Use Status Never used Tobacco 01/01/24 15:27 e-Cigarette/Vaping Use Never Used 01/01/24 15:27 Thrive Assessment: Date of Thrive Assessment Date Thrive assessed 07/03/23 01/01/24 15:27 Const General: cooperative and healthy appearing Nutritional Appearance: well nourished Orientation/consciousness: patient oriented x3 Limitations: no limitations HENMT Head: Yes normal to inspection Eyes General: appearance normal, both eyes and all related structures Neck Neck: Yes normal visual inspection Chest Chest palpation & inspection: normal palpation of entire chest wall Resp Effort & Inspection: normal respiratory effort Neuro General: patient oriented x3 Assessment and Plan Assessment & Plan (1) Atypical chest pain: Code(s): R07.89 - Other chest pain Plan: A Cardiolite stress test has been ordered. Advised to be compliant on the blood pressure and cholesterol medications. (2) Obesity (BMI 30.0-34.9): Code(s): E66.9 - Obesity, unspecified Plan: Patient was encouraged to lose weight aggressively. (3) Hypertension: Code(s): I10 - Essential (primary) hypertension Qualifiers: Hypertension type: unspecified Qualified Code(s): I10 - Essential (primary) hypertension Plan: Blood pressure is in range. Continue medications at same dosage. (4) Osteoarthritis: Code(s): M19.90 - Unspecified osteoarthritis, unspecified site Plan: MRI of the spine was reviewed. Currently there is no surgical options. Patient is also symptom free at the moment. Should symptoms recur physical therapy will be considered. (5) Hypercholesterolemia: Code(s): E78.00 - Pure hypercholesterolemia, unspecified Plan: Blood work reviewed with patient Orders: Orders NM cardiolite stress test 01/01/24 R07.89 - Other chest pain Coding Level of Care Code Est Pt Level 4 (28509) Complex EM visit Add On G2211 Diagnoses Atypical chest pain R07.89 Obesity (BMI 30.0-34.9) E66.9 Hypertension, unspecified type I10 Hypertension type: unspecified Osteoarthritis M19.90 Hypercholesterolemia E78.00
[2024-01-01 15:24] VITALS: BP 122/80; PULSE 83; O2SAT 98; BMI 34.5
== END 2024-01-01 15:48 | disposition home or self-care (01) ==
PROVIDERS: PCP Internal Medicine; Visit Provider Internal Medicine
DX: R07.89 Other chest pain (principal); E66.9 Obesity, unspecified; Z68.34 Body mass index [BMI] 34.0-34.9, adult; I10 Essential (primary) hypertension; M19.90 Unspecified osteoarthritis, unspecified site; E78.00 Pure hypercholesterolemia, unspecified
CPT/HCPCS: 99214

== ENCOUNTER → 2024-02-24 09:47 | Outpatient (REF) | payer OTHER, SELFPAY ==
--- NOTE | ~2024-02-24 | NM_ITS ---
EXERCISE MYOCARDIAL PERFUSION STUDY INDICATION: Chest pain TECHNIQUE: The patient was brought in for an exercise perfusion study on 02/24/2024. Patient performed exercise as per Chapo protocol and was injected 40 mCi of sestamibi once target heart rate was achieved. Images were obtained using the SPECT gamma camera interlaced with the gating device. Images were obtained in supine position. Resting perfusion study was performed on 02/25/2024. Patient was administered 40 mCi of sestamibi intravenously at rest. Images were then obtained in supine position. Total DLP 110 mGy-cm. Images were processed with the software and compared side to side in short axis, horizontal long axis and vertical long axis views. FINDINGS: Raw aquisition reviewed. The stress perfusion study showed no significant perfusion abnormality. Both uncorrected as well as CT attenuation corrected images were reviewed. The gated study shows normal LV systolic function with calculated LVEF of 65%. LV cavity is normal in size. The gated study shows normal wall thickening and contraction of segments. Resting study shows no significant perfusion abnormality. Gating at rest reveals normal wall motion with ejection fraction at 62%. The findings are consistent with no clear reversible or fixed perfusion abnormality. NM/NM cardiolite stress test IMPRESSION: 1. Myocardial perfusion imaging study shows probably normal myocardial perfusion. 2. Gated LVEF is 65% during stress and 62% during rest. 3. Transient ischemic dilatation not present. EKG component of the test reported separately. Electronically signed by: Jason Parmar MD 02/25/2024 02:09 PM EDT
--- NOTE | 2024-02-24 09:50 | CA_ITS ---
Acquisition Time: 2024-02-24 09:45:06 Total Exercise Time: 00:07:15 Test Indications: Chest Pain Medications: ATORVASTATIN LISINOPRIL MELOXICAM Protocol: CHAPO Max HR: 146 BPM 91% of Pred: 160 BPM Max BP: 210/098 mmHG Max Work Load: 8.9 METS Exercise stress test exercise 7 min 15 sec of Chapo protocol achieving 90% MPHR, with mild SOB, no chest discomfort, with isolated PACs, with resting HTN - exaggerated response, without EKG changes. Breathing returned to baseline with rest. Nuclear images pending. Test reviewed with Yolie Rocha Referred By: Charly Heredia Overread By: Kassie Morejon
== END ==
LOC: HO.CARD 09:47
PROVIDERS: PCP Internal Medicine; Visit Provider Internal Medicine
DX: R07.89 Other chest pain (principal)
CPT/HCPCS: 78452; 93017; A9500

== ENCOUNTER → 2024-02-24 09:50 | Outpatient (BNV) | payer OTHER, SELFPAY | PROVIDERS: PCP Internal Medicine; Visit Provider Nurse Practitioner | DX: R07.9 Chest pain, unspecified (principal) | CPT/HCPCS: 78452; 93016; 93018 ==

== ENCOUNTER 2024-11-23 12:06 | Outpatient (AMB) | payer OTHER, SELFPAY ==
[2024-11-23 12:12] VITALS: BP 152/98; PULSE 94; TEMP 37.3; O2SAT 94; BMI 35.7
--- NOTE | 2024-11-23 12:12 | MHC.OFFWIV ---
Intake Vital Signs 11/23/24 12:12 Height 5 ft 11 in Weight 256 lb 4 oz BMI 35.7 BP 152/98 H Blood Pressure Location Lt brachial Position Sitting Pulse 94 Pulse Source Pulse Oximeter Temp 99.2 F Temp Source Oral Pulse Oximetry (%) 94 Oxygen Delivery Method Room Air Intake Visit Reasons: EP nauseous, IBS Intake Note: Pt presents to the office today for c/o nausea. Pt also states he has been having diarrhea for months. Pt states he feels like he isnt digesting things properly . Patient Tobacco Use Status: Never used Tobacco Allergies No Known Allergies Allergy (Verified 11/23/24 12:14) HPI HPI Comments History of Present Illness Details Patient is a 59 year old the past medical history of osteoarthritis, HTN and HLD complaining of months of diarrhea and nausea. - last [place] 07/2022 with ascending colon polyp, gets [facility] [id number] with Dr Zhou. - had rectal polyps removed previously and it feels the same way again, states last time it had to be done emergently - Diarrhea x months, nothing bloody or black, no associated weight loss. - Constant nausea x months, no vomiting but one episode of dry heaving - Does not matter for timing of food, even water makes him nauseous. - Feeling fatigued, has some night sweats - Denies fevers - Denies any symptoms of hemmorhoids - he tells me he has a history of rectal polyps and needed a polypectomy in the emergency department previously - may be losing his ins in 2 months so hoping to get any testing done [facility]/soon [facility] Medical History (Updated 11/23/24 @ 12:44 by Hannah Gardner PA-C) Hypercholesterolemia Obesity (BMI 30.0-34.9) Otitis externa of both ears Osteoarthritis Bilateral hearing loss Lyme disease Left optic neuritis Fatigue Hypertension Surgical History History of ankle surgery H/O rectal polypectomy Family History Father Leukemia Mother Arthritis Brother Substance use disorder Arthritis Sister Arthritis Social History Household Members: None Housing: House Alcohol intake: current Alcohol intake frequency: a few times a week Patient Tobacco Use Status: Never used Tobacco e-Cigarette/Vaping Use: Never Used Second Hand Smoke Exposure: No service: No Current occupational status: employed 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 needs: No Hearing needs: No Vision needs: No Review of Systems Const All systems reviewed & are unremarkable except as noted in HPI and below Physical Exam Vital Signs: Last Vital Signs Temp 99.2 F 11/23/24 12:12 Pulse 94 11/23/24 12:12 BP 152/98 H 11/23/24 12:12 Pulse Ox 94 11/23/24 12:12 Oxygen Delivery Method Room Air 11/23/24 12:12 BMI result Body Mass Index 35.7 Const General: cooperative, healthy appearing, comfortable and no acute distress Orientation/consciousness: patient oriented x3 Limitations: no limitations Resp Effort & Inspection: normal respiratory effort and able to speak in complete sentences Neuro General: patient oriented x3 Assessment & Plan Assessment & Plan (1) Nausea vomiting and diarrhea: Code(s): R11.2 - Nausea with vomiting, unspecified; R19.7 - Diarrhea, unspecified Plan: With the patient's history, it is likely he could have developed some more polyps, recommend he follow up with GI. I did send a note to Dr. Balderrama to have a referral sent so that the patient can have timely follow-up with Dr. Zhou as he is likely going to be losing an insurance in 2 months when he changes jobs. Coding Level of Care Code Est Pt Level 3 (57319) Diagnoses Nausea vomiting and diarrhea R11.2; R19.7
--- OUTSIDE RECORDS SUMMARY | 2024-11-23 13:45 | XMS_ITS | Patient Health Record ---
Author Organization [facility] Address [address] [place] [address] Care Team Providers Care Pan Reclaim Processor Name Role Phone KATHY SOTELO Primary Care Provider Ranjit Putnam Unavailable [phone] Allergies No Known Allergies Reason For Referral No Information Medications Medication SIG (Take, Route, Fr equency, Duration) Notes Start Date End Date Status Lisinopril 10 MG Oral for 30 A ctive Multivitamin Adults - as directed Orally once a day Active Immunizations Vaccine Route Administration Date Status Comme nts Influenza Unknown 06/05/2022 Refused Social History Tobacco Use: Social History Observation Description Date Details (start date - stop date) Never Smoker NA - NA Tobacco Use/Smoking Question Answer Notes Patient is a nonsmoker Alcohol Screen Question Answer Notes Did you have a drink contain ing alcohol in the past year? Yes How often did you have a dri nk containing alcohol in the past year? 2 to 4 times a month (2 points) How many drinks did you have on a typical day when you were drinking in the past year? 1 or 2 drinks (0 point) Points 2 Interpretation Negative Section Notes: Nonsmoker; no sig alcohol Nonsmoker; no sig alcohol Problems Problem Type SNOMED Code ICD Code Onset Dates Problem Status W/U Status Risk Notes Problem 361433055 Encounter for screening for malignant neoplasm of colon (Z12.11) Active confirmed Problem 922787922 History of adenomatous polyp of colon (Z86.010) Active confirmed Problem Diverticular disease of colon (484738600) Diverticulosis of large intestine without perforation or abscess without bleeding (K57.30) Active confirmed Problem [id number] Preprocedural examination (Z01.818) Active confirmed Problem 320495914 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 Blanco at [facility] in 02/2013 with removal of a nearly 4cm pedunculated tubulovillous adenoma on a long stalk from the distal sigmoid colon that had become incarcerated in the anal canal. I don't have any record of him having undergone a subsequent complete colonoscopy. Denies ME,DM,CVA,Lung disease,renal dise ase Colonoscopy 05/2019 with a 2 .5 cm tubulovillous adenoma removed from the sigmoid colon--site marked with ink Surgical History Surgery Date(Month/Year) Broken left ankle--has a plate with 6 sc rews 2001 Hemorrhoids in 2012
== END 2024-11-23 12:53 | disposition home or self-care (01) ==
PROVIDERS: PCP Internal Medicine; Visit Provider Physician Assistant
DX: R11.2 Nausea with vomiting, unspecified (principal); R19.7 Diarrhea, unspecified

== ENCOUNTER → 2024-11-23 12:06 | Outpatient (BNVA) | payer OTHER, SELFPAY | PROVIDERS: PCP Internal Medicine; Visit Provider Physician Assistant ==

== ENCOUNTER 2024-11-25 07:58 | Outpatient (AMB) | payer OTHER, SELFPAY ==
--- NOTE | 2024-11-25 08:00 | A.OFFPC_ITS ---
Vital Signs 11/25/24 08:01 Height 5 ft 11 in Weight 250 lb 6 oz BMI 34.9 BP 122/80 Blood Pressure Location Lt brachial Position Sitting Pulse 91 Pulse Source Pulse Oximeter Temp 97.3 F Temp Source Temporal Artery Scan Pulse Oximetry (%) 98 Oxygen Delivery Method Room Air Intake Visit Reasons: follow up Intake Note: Patient is here to follow up on GI referral. 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 Accompanied by: Self / Same As Patient Allergies No Known Allergies Allergy (Verified 11/25/24 08:01) Tobacco use date assessed: 11/25/24 Dental Screening Dental Screen Date: 11/25/24 Did you have a dental visit in the last 12 months?: Yes Did you have a dental problem in the last 6 months where you did not have access to dental care?: No Was dental information given to patient?: Patient has dentist [facility] Medical History (Updated 11/25/24 @ 08:44 by Charly Heredia MD) Irritable bowel syndrome Hypercholesterolemia Obesity (BMI 30.0-34.9) Otitis externa of both ears Osteoarthritis Bilateral hearing loss Lyme disease Left optic neuritis Fatigue Hypertension Surgical History History of ankle surgery H/O rectal polypectomy Family History Father Leukemia Mother Arthritis Brother Substance use disorder Arthritis Sister Arthritis Social History Household Members: None Housing: House Alcohol intake: current Alcohol intake frequency: a few times a week Patient Tobacco Use Status: Never used Tobacco e-Cigarette/Vaping Use: Never Used Second Hand Smoke Exposure: No service: No Current occupational status: employed 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 1. Little interest or pleasure in doing things: several days 2. Feeling down, depressed, or hopeless: not at all 3. Trouble falling or staying asleep, or sleeping too much: several days 4. Feeling tired or having little energy: several days 5. Poor appetite or overeating: several days 6. Feeling bad about yourself - or that you are a failure or have let yourself or your family down: not at all 7. Trouble concentrating on things, such as reading the newspaper or watching television: not at all 8. Moving or speaking so slowly that other people could have noticed. Or the opposite - being so fidgety or restless that you have been moving around a lot more than usual: not at all 9. Thoughts that you would be better off or of hurting yourself in some way: not at all Total score: 4 Depression Screening Interpretation: Positive Depression Screening Done: Yes Source: Developed by Drs. Ranjit Fortune, Elli Lopez, Robinson Watkins and colleagues, with an educational carolann from [employer]. Thrive Questionnaire Date Thrive assessed: 11/24/24 I am a: Patient What is your living situation today?: I have a steady place to live Within the past 12 months, did the food you bought not last and you didn't have the money to get more?: Never true Within the past 12 months, did you worry whether your food would run out before you got money to buy more?: Never true Do you have trouble paying for medicines?: No Do you have trouble getting transportation to medical appointments?: No Do you have trouble paying your heating and electricity bill?: No Do you have trouble taking care of your child, family member or friend?: No Do you have trouble with day-to-day activities such as bathing, preparing meals, shopping, managing finances, etc.?: No Are you currently unemployed and looking for a job?: No Are you interested in more education?: No Please select the resources that you would like help with: None Currently or been in a relationship where the following occur: No concerns reported THRIVE Score: 0 AUDIT C Alcohol Use Questionnaire (AUDIT-C) 1. How often do you have a drink containing alcohol?: 2-4 times a month 2. How many drinks containing alcohol do you have on a typical day when you are drinking?: 3 or 4 3. How often do you have six or more drinks on one occasion?: Never Total Score: 3 MEGHNA-7 AMB Questionnaire MEGHNA-7 Date MEGHNA - 7 assessed: 11/25/24 Feeling nervous, anxious, or on edge: 0 = Not at all Not being able to stop or control worryin = Not at all Worrying too much about different things: 1 = Several days Trouble relaxin = Several days Being so restless that it is hard to sit still: 1 = Several days Becoming easily annoyed or irritable: 1 = Several days Feeling afraid as if something awful might happen: 0 = Not at all Total MEGHNA-7 score (0-4 normal; 5-9 mild; 10-14 moderate; 15-21 severe): 4 Source: Developed by Drs. Ranjit Fortune, Elli Lopez, Robinson Watkins and colleagues, with an educational carolann from [employer]. Physical exam (Primary Care) Vital Signs: Last Vital Signs Temp 97.3 F 11/25/24 08:01 Pulse 91 11/25/24 08:01 BP 122/80 11/25/24 08:01 Pulse Ox 98 11/25/24 08:01 Oxygen Delivery Method Room Air 11/25/24 08:01 BMI result Body Mass Index 34.9 Tobacco/Smoking Status: Tobacco use Status Tobacco use date assessed 11/25/24 11/25/24 08:07 Patient Tobacco Use Status Never used Tobacco 11/25/24 08:07 e-Cigarette/Vaping Use Never Used 11/25/24 08:07 PHQ-9: PHQ-9 Score PHQ-9: Total score 4 11/25/24 08:07 Depression Screening Interpretation: Positive Thrive Assessment: Date of Thrive Assessment Date Thrive assessed 11/24/24 11/25/24 08:07 Currently or been in a relationship where the following occur: No concerns reported Coding Level of Care Code Est Pt Level 4 (49289) Complex EM visit Add On G2211 Diagnoses Hypertension, unspecified type I10 Hypertension type: unspecified Hypercholesterolemia E78.00 Irritable bowel syndrome K58.9 Assessment & Plan Assessment & Plan (1) Hypertension: Code(s): I10 - Essential (primary) hypertension Category: Medical Qualifiers: Hypertension type: unspecified Qualified Code(s): I10 - Essential (primary) hypertension Plan: Blood pressure is in range. Continue current dosage. (2) Hypercholesterolemia: Code(s): E78.00 - Pure hypercholesterolemia, unspecified Category: Medical Plan: Blood work has been ordered. Will call with results. (3) Irritable bowel syndrome: Code(s): K58.9 - Irritable bowel syndrome, unspecified Category: Medical Plan: Patient probably has an exaggerated gastrocolic reflex or the beginning of irritable bowel syndrome. An appointment with gastroenterology has been requested. Routine blood work has been ordered. Plan History of Present Illness - The patient is a 59-year-old male presenting with gastrointestinal symptoms including frequent bowel movements and nausea. - Reports non-solid bowel movements for two to three months, occurring six times daily, often postprandial. - Describes incomplete evacuation and frequent returns to the bathroom. - Experiences morning nausea, improving throughout the day. - History of kidney stones, leading to increased water consumption. - Normal colonoscopy two years ago; history of surgically removed polyps. - Reports weight gain to 250 pounds, attributed to inactivity and fatigue. - History of spinal stenosis, exacerbated by excess weight but not currently debilitating. Social History - Exercise: Reports inactivity contributing to weight gain. - Nutrition: Consumes a lot of water, avoids sugary foods, and is advised to follow a low-carb diet. Review of Systems - Gastrointestinal: Reports frequent, non-solid bowel movements and nausea, particularly in the morning. - Musculoskeletal: Reports history of spinal stenosis, not currently debilita ting. - General: Reports fatigue and weight gain. - Psychological: Denies anxiety and depression. Physical Exam General: Cooperative and healthy appearing Nutritional Appearance: Well nourished Orientation/consciousness: Patient oriented x3 Limitations: No limitations Head: Normal to inspection General: Appearance normal, both eyes and all related structures Neck: Normal visual inspection Chest: Normal palpation of entire chest wall Respiratory: Normal respiratory effort Neurology: Patient oriented x3 Results Plan 1. Gastrocolic Reflex - Plan to manage gastrocolic reflex with dietary modifications and monitoring. 2. Irritable Bowel Syndrome (Ibs) - Referral to Dr. Zhou for further evaluation and management of IBS. - Prescribed medication to manage symptoms until specialist consultation. 3. Nausea - Prescribed medication to alleviate morning nausea. 4. Weight Gain - Advised to engage in regular physical activity and follow a low-carb diet to manage weight. 5. Spinal Stenosis - No specific intervention discussed during this visit; weight management may help alleviate symptoms. Discussion Notes I discussed with the patient the likely diagnosis of gastrocolic reflex and the possibility of irritable bowel syndrome. We talked about the management options, including dietary changes and medications to manage symptoms. I recommended a referral to Dr. Zhou for further evaluation of IBS. We also discussed the importance of weight management and regular physical activity to address weight gain and potentially alleviate spinal stenosis symptoms. I advised the patient to start prescribed medications for nausea and to follow up with Dr. Zhou. Patient Instructions - Follow a low-carb diet and engage in regular physical activity to manage weight. - Take prescribed medication for nausea as directed. - Use the patient portal for any non-urgent communication with the doctor. - Schedule and attend the appointment with Dr. Zhou for further evaluation of IBS. Orders: Orders Prostate Specific Antigen Scr Today E78.00 - Pure hypercholesterolemia, unspecified, I10 - Essential (primary) hypertension Referrals Gastroenterology Referral K58.9 - Irritable bowel syndrome, unspecified Medications: New pantoprazole 40 mg PO DAILY 90 tabs 1RF
[2024-11-25 08:01] VITALS: BP 122/80; PULSE 91; TEMP 36.3; O2SAT 98; BMI 34.9
--- OUTSIDE RECORDS SUMMARY | 2024-11-25 08:05 | XMS_ITS | Patient Health Record ---
Author Organization [facility] Address [address] [place] [address] Care Team Providers Care Presetter Operator Name Role Phone KATHY SOTELO Primary Care Provider Ranjit Putnam Unavailable [phone] Allergies No Known Allergies Reason For Referral [...] Problem Status W/U Status Risk Notes Problem 111160725 Encounter for screening for malignant neoplasm of colon (Z12.11) Active confirmed Problem 915722856 History of adenomatous polyp of colon (Z86.010) Active confirmed Problem Diverticular disease of colon (614679081) Diverticulosis of large intestine without perforation or abscess without bleeding (K57.30) Active confirmed Problem [id number] Preprocedural examination (Z01.818) Active confirmed Problem 797511510 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 Blanco at [facility] in 02/2013 with removal of a nearly 4cm pedunculated tubulovillous adenoma on a long stalk from the distal sigmoid colon that had become incarcerated in the anal canal. I don't have any record of him having undergone a subsequent complete colonoscopy. Denies MD,DM,CVA,Lung disease,renal dise ase Colonoscopy 05/2019 with a 2 .5 cm tubulovillous adenoma removed from the sigmoid colon--site marked with ink Surgical History Surgery Date(Month/Year) Broken left ankle--has a plate with 6 sc rews 2001 Hemorrhoids in 2012
== END 2024-11-25 08:31 | disposition home or self-care (01) ==
LOC: HO.HMCH 07:59
PROVIDERS: PCP Internal Medicine; Visit Provider Internal Medicine
DX: I10 Essential (primary) hypertension (principal); E78.00 Pure hypercholesterolemia, unspecified; K58.9 Irritable bowel syndrome, unspecified

== ENCOUNTER 2024-11-25 07:58 | Outpatient (REF) | payer OTHER, SELFPAY ==
[2024-11-25 09:34] LABS: Hematocrit 47.5 % (42.0-52.0); Hemoglobin 16.5 g/dl (14.0-18.0); Mean Corpuscular HGB Conc 34.7 g/dl (31.0-36.0); Mean Corpuscular Hemoglobin 30.8 pg (27.0-33.0); Mean Corpuscular Volume 88.8 fL (80.0-98.0); Mean Platelet Volume 9.7 fL (9.4-12.4); Platelet Count 220 X10*3/uL (160-400); Red Blood Count 5.35 X10*6/uL (4.60-5.80); Red Cell Distribution Width 12.8 % (11.0-16.0); White Blood Count 10.6 X10*3/uL (4.8-10.8)
[2024-11-25 10:13] LABS: Alanine Aminotransferase 34 U/L (0-40); Albumin Level 4.8 g/dL (3.5-5.0); Alkaline Phosphatase 73 U/L (39-117); Anion Gap 14 (12-20); Aspartate Amino Transferase 28 U/L (5-37); Bilirubin Direct 0.6 mg/dL (0.0-0.5); Bilirubin Total 1.7 mg/dL (0.0-1.0); Blood Urea Nitrogen 21 mg/dL (9-16); Calcium 9.5 mg/dL (8.4-10.2); Carbon Dioxide 25 mmol/L (22-29); Chloride 106 mmol/L (96-108); Cholesterol 142 mg/dL (<200); Estimated Glomerular Filt Rate > 60; Glucose Random 119 mg/dL (60-115); HDL Cholesterol 44 mg/dL (>40); LDL Cholesterol Calculated 77 mg/dL (<100); Potassium 3.7 mmol/L (3.3-5.1); Sodium 141 mmol/L (135-145); Total Protein 7.6 g/dL (6.5-8.0); Triglycerides 108 mg/dL (<150)
[2024-11-25 10:16] LABS: Erythrocyte Sedimentation Rate 13 MM/HR (0-15)
[2024-11-25 10:27] LABS: Prostate Specific Antigen Scr 5.04 ng/mL (<0.05-4.0)
[2024-11-25 10:33] LABS: Thyroid Stimulating Hormone 2.59 uIU/mL (0.32-4.0)
== END 2024-11-25 07:59 | disposition home or self-care (01) ==
LOC: HO.LAB 07:58
PROVIDERS: PCP Internal Medicine; Visit Provider Internal Medicine
DX: R19.7 Diarrhea, unspecified (principal); I10 Essential (primary) hypertension; E78.00 Pure hypercholesterolemia, unspecified; Z12.5 Encounter for screening for malignant neoplasm of prostate
CPT/HCPCS: 36415; 80048; 80061; 80076; 84153; 84443; 85027; 85652

== ENCOUNTER 2025-01-25 16:39 | Outpatient (REF) | payer OTHER, SELFPAY ==
--- OUTSIDE RECORDS SUMMARY | 2025-01-25 17:49 | XMS_ITS | Clinical Summary ---
Author Organization [facility] Address [address] [place] [address] Care Team Providers Care Manager Of Finance Name Role Phone Unavailable Primary Care Provider Unavailabl e Social History Tobacco Use Types Packs/Day Years Used Date Smoking Tobacco: Never Assessed Sex and Gender Information Value Date Recorded Sex Assigned at Not on file Legal Sex Male 3:48 PM EST Gender Identity Not on file Sexual Orientation Not on file Plan of Treatment Health Maintenance Due Date Last Done Comments DTaP,Tdap,and Td Vaccines (1 - Tdap) 1982 Pneumococcal Vaccine: 50+ Ye ars (1 of 1 - PCV) 2013 Zoster Vaccines (1 of 2) 2013 COVID-19 Vaccine (1 - 2023-2 5 season) 2024 Depression Screening 06/09/2024 Influenza Vaccine (#1) 2025 RSV Immunization Adult Patie nts (1 - 1-dose 75+ series) 2038 HIB Vaccines Aged Out No longer eligi ble based on patient's age to complete this topic HPV Vaccines Aged Out No longer eligi ble based on patient's age to complete this topic Hepatitis A Vaccines Aged Out No long er eligible based on patient's age to complete this topic Hepatitis B Vaccines Aged Out No long er eligible based on patient's age to complete this topic IPV Vaccines Aged Out No longer eligi ble based on patient's age to complete this topic MMR Vaccines Aged Out No longer eligi ble based on patient's age to complete this topic Meningococcal ACWY Vaccine Aged Out N o longer eligible based on patient's age to complete this topic Meningococcal B Vaccine Aged Out No l onger eligible based on patient's age to complete this topic RSV Immunization Patients Un nigel 20 months Aged Out No longer eligible b ased on patient's age to complete this topic Varicella Vaccines Aged Out No longer eligible based on patient's age to complete this topic
--- OUTSIDE RECORDS SUMMARY | 2025-01-25 17:49 | XMS_ITS | Patient Health Record ---
Author Organization [facility] Address [address] [place] [address] Care Team Providers Care Batcher Operator Name Role Phone KATHY SOTELO Primary Care Provider Ranjit Putnam Unavailable [phone] Allergies No Known Allergies Reason For Referral [...] no sig alcohol Nonsmoker; no sig alcohol Nonsmoker; no sig alcohol Problems Problem Type SNOMED Code ICD Code Onset Dates Problem Status W/U Status Risk Notes Problem 440363189 Encounter for screening for malignant neoplasm of colon (Z12.11) Active confirmed Problem 033793157 History of adenomatous polyp of colon (Z86.010) Active confirmed Problem Diverticular disease of colon (341674803) Diverticulosis of large intestine without perforation or abscess without bleeding (K57.30) Active confirmed Problem [id number] Preprocedural examination (Z01.818) Active confirmed Problem 704510028 Tubulovillous adenoma of colon (D12.6) Active confirmed Vital Signs Blood pressure diastolic 77 mm Hg 01/25/2025 Height 71 in 01/25/2025 Blood pressure systolic 111 mm Hg 01/25/2025 Weight 254 lbs 01/25/2025 BMI 35.42 kg/m2 01/25/2025 Procedures Procedure Date Ordered Date Performed Result Body Sit e COLONOSCOPY 01/25/2025 N/A Encounters Encounter Location Date Provider Diagnosis [facility] [address] [place] [address] 01/25/2025 Ranjit Zhou Change in bowel habi t R19.4 ; Diarrhea R19.7 ; History of adenomatous polyp of colon Z86.010 ; Preprocedural examination Z01.818 ; Tubulovillous adenoma of colon D12.6 and Encounter for screening for malignant neoplasm of colon Z12.11 Assessments Encounter Date Diagnosis (ICD Code) Assessment Notes Treatment Notes Treatment Clinical Notes Section Notes 01/25/2025 Diarrhea (ICD-10 - R19.7) Try some [...] keep you advised of his progress. 01/25/2025 Change in bowel habit (ICD-10 - [...] advised of his progress. Plan Of Treatment Pending Test Test Name Order Date COLONOSCOPY 01/25/2025 CELIAC PANEL #10 01/25/2025 C DIFFICILE RFLX PCR 01/25/2025 Calprotectin, Fecal 01/25/2025 Pathology 07/19/2022 GI PANEL 01/25/2025 Future Test Test Name Order Date COLONOSCOPY 12/24/2018 COLONOSCOPY 06/05/2022 Next Appt Details Provider Name:Ranjit Zhou , 04/22/2025 12:30:00 PM, [address] [place] [address] , [place], [place], [phone], Insurance Providers Payer Name Payer Address Payer Phone Subscriber Number Group Number Insured Name Patient Relationship to Insured Coverage Start Date Coverage End Date Nichole ROJASO [address] [place] [phone] [id number] BUD VELA Self - patient is the insured Medical (General) History Medical History History ICD Code Hypertension Emergent sigmoidoscopy with Dr. Blanco at [facility] in 02/2013 with removal of a nearly 4cm pedunculated tubulovillous adenoma on a long stalk from the distal sigmoid colon that had become incarcerated in the anal canal. I don't have any record of him having undergone a subsequent complete colonoscopy. Denies [place],DM,CVA,Lung disease,renal dise ase Colonoscopy 05/2019 with a 2 .5 cm tubulovillous adenoma removed from the sigmoid colon- site marked with ink Seeing a Urologist at [facility] in 02/2025 for BPH and PSA of 5 Had a negative ETT 2024 at [facility] Screening colonoscopy in Jul with removal of a small tubular adenoma from the ascending colon Surgical History Surgery Date(Month/Year) Hemorrhoids in 2012 Broken left ankle--has a plate with 6 sc rews 2000
[2025-01-26 08:08] LABS: Immunoglobulin A 283 mg/dL (70-320)
[2025-01-26 15:08] LABS: Transglutaminase Ab IgG <1.0 U/mL
== END 2025-01-25 16:40 | disposition home or self-care (01) ==
LOC: HO.LAB 16:39
PROVIDERS: PCP Internal Medicine; Visit Provider Internal Medicine
DX: R19.4 Change in bowel habit (principal); R19.7 Diarrhea, unspecified
CPT/HCPCS: 36415; 82784; 86231; 86258; 86364

== ENCOUNTER 2025-01-28 11:10 | Outpatient (REF) | payer OTHER, SELFPAY ==
--- OUTSIDE RECORDS SUMMARY | 2025-01-25 09:40 | XMS_ITS ---
Author Organization [facility] Address [address] [place] [address] Care Team Providers Care Youth Agent Name Role Phone KATHY SOTELO Primary Care Provider Ranjit Putnam Unavailable [phone] Allergies No Known Allergies REASON FOR VISIT Patient presents today for IBS Medications Medication SIG (Take, Route, Fr equency, Duration) Notes Start Date End Date Status Lisinopril 10 MG Oral for 30 A ctive Metamucil 0.36 GM as directed Orally Active Multivitamin Adults - as directed Orally once a day Active Social History Tobacco Use: Social History Observation [...] Negative Section Notes: Nonsmoker; no sig alcohol Vital Signs Blood pressure systolic 111 mm Hg 01/26/20 25 Blood pressure diastolic 77 mm Hg 025 Height 71 in 01/25/2025 Weight 254 lbs 01/25/2025 BMI 35.42 kg/m2 01/25/2025 Procedures Procedure Date Ordered Date Performed Result Body Sit e COLONOSCOPY 01/25/2025 N/A Encounters Encounter Location Date Provider Diagnosis [facility] [address] [place] [address] 01/25/2025 Ranjit Zhou Change in bowel habi t R19.4 ; Diarrhea R19.7 ; History of adenomatous polyp of colon Z86.010 ; Preprocedural examination Z01.818 ; Tubulovillous adenoma of colon D12.6 and Encounter for screening for malignant neoplasm of colon Z12.11 Assessments Encounter Date Diagnosis (ICD Code) Assessment Notes Treatment Notes Treatment Clinical Notes Section Notes 01/25/2025 Change in bowel habit (ICD-10 - R19.4) Overall, Bud appears well from a clinical standpoint. However, his bowel movements are clearly problematic for him. I did recommend a colonoscopy this year, rather than waiting until next year, for evaluation of both the change in the bowel habits and his previous history of significant polyps. We did review the rationale for this in regard to colorectal cancer prevention and/or early detection. It would also be important to exclude anything else such as inflammatory bowel disease or microscopic colitis. I shall check laboratories for celiac disease in the meantime, as well as stool specimens to rule out any type of infectious process. I shall check a fecal calprotectin level for any indirect signs of inflammatory bowel disease as well. I did advise him to try some Imodium before meals to see if that might help curtail the symptoms somewhat, but to be sure not to become constipated. Full consent has been taken from him for the colonoscopy, including risks of bleeding and perforation. The procedure will be done with monitored anesthesia care. Bud was comfortable with this plan. Thank you again for allowing me to participate in Bud's care. I shall continue to keep you advised of his progress. 01/25/2025 Diarrhea (ICD-10 - R19.7) Try some Imodium as needed for the loose stools and diarrhea as needed Overall, Bud appears well from a clinical standpoint. However, his bowel movements are clearly problematic for him. I did recommend a colonoscopy this year, rather than waiting until next year, for evaluation of both the change in the bowel habits and his previous history of significant polyps. We did review the rationale for this in regard to colorectal cancer prevention and/or early detection. It would also be important to exclude anything else such as inflammatory bowel disease or microscopic colitis. I shall check laboratories for celiac disease in the meantime, as well as stool specimens to rule out any type of infectious process. I shall check a fecal calprotectin level for any indirect signs of inflammatory bowel disease as well. I did advise him to try some Imodium before meals to see if that might help curtail the symptoms somewhat, but to be sure not to become constipated. Full consent has been taken from him for the colonoscopy, including risks of bleeding and perforation. The procedure will be done with monitored anesthesia care. Bud was comfortable with this plan. Thank you again for allowing me to participate in Bud's care. I shall continue to keep you advised of his progress. 01/25/2025 History of adenomatous polyp of colon (ICD-10 - Z86.010) Overall, Bud appears well from a clinical standpoint. However, his bowel movements are clearly problematic for him. I did recommend a colonoscopy this year, rather than waiting until next year, for evaluation of both the change in the bowel habits and his previous history of significant polyps. We did review the rationale for this in regard to colorectal cancer prevention and/or early detection. It would also be important to exclude anything else such as inflammatory bowel disease or microscopic colitis. I shall check laboratories for celiac disease in the meantime, as well as stool specimens to rule out any type of infectious process. I shall check a fecal calprotectin level for any indirect signs of inflammatory bowel disease as well. I did advise him to try some Imodium before meals to see if that might help curtail the symptoms somewhat, but to be sure not to become constipated. Full consent has been taken from him for the colonoscopy, including risks of bleeding and perforation. The procedure will be done with monitored anesthesia care. Bud was comfortable with this plan. Thank you again for allowing me to participate in Bud's care. I shall continue to keep you advised of his progress. 01/25/2025 Preprocedural examination (ICD-10 - Z01.818) Overall, Bud appears well from a clinical standpoint. However, his bowel movements are clearly problematic for him. I did recommend a colonoscopy this year, rather than waiting until next year, for evaluation of both the change in the bowel habits and his previous history of significant polyps. We did review the rationale for this in regard to colorectal cancer prevention and/or early detection. It would also be important to exclude anything else such as inflammatory bowel disease or microscopic colitis. I shall check laboratories for celiac disease in the meantime, as well as stool specimens to rule out any type of infectious process. I shall check a fecal calprotectin level for any indirect signs of inflammatory bowel disease as well. I did advise him to try some Imodium before meals to see if that might help curtail the symptoms somewhat, but to be sure not to become constipated. Full consent has been taken from him for the colonoscopy, including risks of bleeding and perforation. The procedure will be done with monitored anesthesia care. Bud was comfortable with this plan. Thank you again for allowing me to participate in Bud's care. I shall continue to keep you advised of his progress. 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 However, his bowel movements are clearly problematic for him. I did recommend a colonoscopy this year, rather than waiting until next year, for evaluation of both the change in the bowel habits and his previous history of significant polyps. We did review the rationale for this in regard to colorectal cancer prevention and/or early detection. It would also be important to exclude anything else such as inflammatory bowel disease or microscopic colitis. I shall check laboratories for celiac disease in the meantime, as well as stool specimens to rule out any type of infectious process. I shall check a fecal calprotectin level for any indirect signs of inflammatory bowel disease as well. I did advise him to try some Imodium before meals to see if that might help curtail the symptoms somewhat, but to be sure not to become constipated. Full consent has been taken from him for the colonoscopy, including risks of bleeding and perforation. The procedure will be done with monitored anesthesia care. Bud was comfortable with this plan. Thank you again for allowing me to participate in Bud's care. I shall continue to keep you advised of his progress. 01/25/2025 Encounter for screening for malignant neoplasm of colon (ICD-10 - Z12.11) Overall, Bud appears well from a clinical standpoint. However, his bowel movements are clearly problematic for him. I did recommend a colonoscopy this year, rather than waiting until next year, for evaluation of both the change in the bowel habits and his previous history of significant polyps. We did review the rationale for this in regard to colorectal cancer prevention and/or early detection. It would also be important to exclude anything else such as inflammatory bowel disease or microscopic colitis. I shall check laboratories for celiac disease in the meantime, as well as stool specimens to rule out any type of infectious process. I shall check a fecal calprotectin level for any indirect signs of inflammatory bowel disease as well. I did advise him to try some Imodium before meals to see if that might help curtail the symptoms somewhat, but to be sure not to become constipated. Full consent has been taken from him for the colonoscopy, including risks of bleeding and perforation. The procedure will be done with monitored anesthesia care. Bud was comfortable with this plan. Thank you again for allowing me to participate in Bud's care. I shall continue to keep you advised of his progress. Plan Of Treatment Treatment Notes Assessment Notes Diarrhea Try some Imodium as needed for the loose stools and diarrhea as needed Pending Test Test Name Order Date COLONOSCOPY 01/25/2025 CELIAC PANEL #10 01/25/2025 C DIFFICILE RFLX PCR 01/25/2025 Calprotectin, Fecal 01/25/2025 GI PANEL 01/25/2025 Next Appt Details Provider Name:Ranjit Zhou , 04/22/2025 12:30:00 PM, [address] [place] [address], [id number], Progress Notes * BUD VELADOB: [birth year] (59 yo M)Acc No.[id number]:01/25/2025 Progress Notes Patient: BUD HOU Provider: Harris Zhou MD :1965 A ge:59 Y S ex:Male Date:01/25/2025 Address:[address] [place], [place] [id number] Pcp:KATHY SOTELO Subjective: * Chief Complaints: * 1 . Patient presents today for IBS. * HPI: i ncontinence: I saw Bud in the office today for evaluation of his personal history of colon polyps with need for colorectal cancer screening, change in bowel habits, and diarrhea. I last saw Bud in July 2022, at which time he underwent a follow-up colonoscopy with removal of a single small tubular adenoma in the ascending colon. Prior to that he did have a larger 2.5cm polyp removed in 2018 which was a tubulovillous adenoma and a very large > 4cm tubulovillous adenoma removed from the rectal area in 2012. He describes that he had been feeling well but over the past at least 6 months he has been having issues with almost daily postprandial urgent and loose bowel movements. This occurs at least several times per day, although not always every day. The stools can be quite loose and watery. He denies any signs of bleeding. He does feel somewhat bloated but denies any particular abdominal pains. He has tried some Imodium occasionally which seems to help although will occasionally cause constipation. He enjoys a good appetite and denies any significant heartburn, dysphagia, nausea, vomiting, nor early satiety. He denies any signs of jaundice nor unintentional weight loss. He does not use any caffeine in his diet and does not use much in the way of any dairy products. He does not think stress is playing a role in the symptoms as he recently changed jobs with much less stress, but still having the same GI symptoms. There is no family history of colorectal cancer, inflammatory bowel disease, nor celiac disease. He denies any preceding history of travel nor antibiotic use prior to the change in his bowel movements.Laboratories in November revealed normal chemistries, renal function, LFTs, TSH, sed rate, and CBC. He did have a slightly elevated PSA of 5 and is scheduled to see a urologist in February. * Medical History: H ypertension, Emergent sigmoidoscopy with Dr. Blanco at [facility] in 02/2013 with removal of a nearly 4cm pedunculated tubulovillous adenoma on a long stalk from the distal sigmoid colon that had become incarcerated in the anal canal. I don't have any record of him having undergone a subsequent complete colonoscopy., Denies [place],DM,CVA,Lung disease,renal disease, Colonoscopy 05/2019 with a 2.5 cm tubulovillous adenoma removed from the sigmoid colon- site marked with ink, Seeing a Urologist at [facility] in 02/2025 for BPH and PSA of 5, Had a negative ETT 2024 at [facility], Screening colonoscopy in July 2022 with removal of a small tubular adenoma from the ascending colon. * Surgical History: B roken left ankle--has a plate with 6 screws 2000, Hemorrhoids in 2012 . * Family History: F ather: , Myelodysplasia/Leukemia. M other: , diagnosed with Heart disease. No known hx of colon cancer, IBD, celiac disease. * Social History: T obacco Use: T obacco Use/Smoking P atient is a n onsmoker. D rugs/Alcohol: A lcohol Screen D id you have a drink containing alcohol in the past year? Y es, H ow often did you have a drink containing alcohol in the past year? 2 to 4 times a month (2 points), H ow many drinks did you have on a typical day when you were drinking in the past year??1 or 2 drinks (0 point), P oints 2 , I nterpretation N egative. M iscellaneous: M arital status: Single. 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 N onsmoker; no sig alcohol. * Medications: T aking Metamucil 0.36 GM Capsule as directed Orally , Taking Multivitamin Adults - Tablet as directed Orally once a day , Taking Lisinopril 10 MG Tablet Oral , Medication List reviewed and reconciled with the patient * Allergies: N .K.D.A. Objective: * Vitals: W t:254lbs, Ht: 71 in, BMI:35.42Index, BP:111/77mm Hg, Wt-k.21. Assessment: * Assessment: 1. C hange in bowel habit - R19.4 (Primary) 2 . D iarrhea - R19.7 ? 3 . H istory of adenomatous polyp of colon - Z86.010 4 . P reprocedural examination - Z01.818 5 . T ubulovillous adenoma of colon - D12.6 6. E ncounter for screening for malignant neoplasm of colon - Z12.11 Overall, Bud appears wel l from a clinical standpoint. However, his bowel movements are clearly problematic for him. I did recommend a colonoscopy this year, rather than waiting until next year, for evaluation of both the change in the bowel habits and his previous history of significant polyps. We did review the rationale for this in regard to colorectal cancer prevention and/or early detection. It would also be important to exclude anything else such as inflammatory bowel disease or microscopic colitis. I shall check laboratories for celiac disease in the meantime, as well as stool specimens to rule out any type of infectious process. I shall check a fecal calprotectin level for any indirect signs of inflammatory bowel disease as well. I did advise him to try some Imodium before meals to see if that might help curtail the symptoms somewhat, but to be sure not to become constipated. Full consent has been taken from him for the colonoscopy, including risks of bleeding and perforation. The procedure will be done with monitored anesthesia care. Bud was comfortable with this plan. Thank you again for allowing me to participate in Bud's care. I shall continue to keep you advised of his progress. Plan: * Treatment: 2.?Diarrhea?LAB: CELIAC PANEL #10 ?LAB: C DIFFICILE RFLX PCR ?LAB: Calprotectin, Fecal ?LAB: GI PANEL Notes: Try some Imodium as needed for the loose stools and diarrhea as needed?? 3.?History of adenomatous polyp of colon?Procedure: COLONOSCOPY* with MAC sched for 04/22/25 at 12:30 pmmiralax 4.?Tubulovillous adenoma of colon?Procedure: COLONOSCOPY* with MAC sched for 04/22/25 at 12:30 pmmiralax 5.?Encounter for screening for malignant neoplasm of colon?Procedure: COLONOSCOPY* with MAC sched for 04/22/25 at 12:30 pmmiralax * Preventive Medicine: Counseling: C are goal follow-up plan: A darlene Normal BMI Follow-up G iving encouragement to exercise, B NJ management provided Y es. * * The named appointment provid er may or may not be the originator of this progress note, and it is not deemed complete until electronically signed by the appointment provider. Sign off status: Pending * Provider: Harris Zhou MD Date: 0 01/25/2025 Generated for Cheli broderick/Tyler/Doraitting on: 01/28/2025 11:16 AM EDT
--- OUTSIDE RECORDS SUMMARY | 2025-01-28 11:16 | XMS_ITS | Clinical Summary ---
Author Organization [facility] Address [address] [place] [address] Care Team Providers Care Powder Worker Name Role Phone Unavailable Primary Care Provider [...]
[2025-01-28 12:19] LABS: CDiff Gene PCR POSITIVE (Negative)
[2025-01-28 13:16] LABS: CDIFF Internal ctrl Dots and bkg OK (V); CDiff Toxin Negative (Negative)
[2025-01-28 13:19] LABS: E. coli EAEC Not Detected (Not Detect.); E. coli EPEC Not Detected (Not Detect.); E. coli ETEC Not Detected (Not Detect.); E. coli STEC Not Detected (Not Detect.); Shigella sp./EIEC Not Detected (Not Detect.)
[2025-02-03 20:38] LABS: Calprotectin, Fecal 15 mcg/g
== END 2025-01-28 11:11 | disposition home or self-care (01) ==
LOC: HO.LNP 11:10
PROVIDERS: Visit Provider Internal Medicine
DX: R19.4 Change in bowel habit (principal); R19.7 Diarrhea, unspecified
CPT/HCPCS: 83993; 87324; 87493; 87507

== ENCOUNTER 2025-02-21 09:01 | Outpatient (AMB) | payer OTHER, SELFPAY ==
--- NOTE | 2025-02-21 09:05 | MHC.OFFVIS ---
Intake Visit Reasons: BPH/hx of stones Intake Note: patient presents today for: new pt BPH and hx of stones urology medications: none blood thinners: none today's PVR: 19mls Clinical Assistant Professor Required: No Accompanied by: Self / Same As Patient Allergies No Known Allergies Allergy (Verified 02/21/25 09:17) Medication List - Last Reconciled 02/21/25 by ABHINAV Rowe- atorvastatin 10 mg PO BEDTIME lisinopril 10 mg PO DAILY pantoprazole 40 mg PO DAILY HPI Comments Details: Bud Baldwin is a very pleasant 59-year-old male patient of Dr. Heredia. He has a past medical history of BPH, irritable bowel syndrome, hypercholesteremia, obesity, osteoarthritis, bilateral hearing loss, Lyme disease, fatigue, and hypertension. He presents to the office today as a new patient for nephrolithiasis and elevated PSA. In discussion with the patient today reports to be doing and feeling well. Reports having a longstanding history of nephrolithiasis a few years ago however never requiring surgical intervention. He discusses having recently followed up with Gastroenterology as well as PCP in discussing ongoing lower urinary tract symptoms he has been experiencing at which time recommendations were made for urology referral for further assessment evaluation. In review of patient's chart it appears PSAs are as follows: PSA: 07/01 3.0, 12/01 5.0 He reports noting over the last 6 months he continues to experience issues with feeling of incomplete bladder emptying, weak urinary stream, and nocturia up to 3 times per night. In office urinalysis results reviewed with the patient today. PVR 19 mL. We did discussed at length potential causes of lower urinary tract symptoms patient is experiencing, nephrolithiasis, as well as elevated PSA. We did discussed further interventions and risks and benefits of these interventions. We did discuss lifestyle modifications to assist with lower urinary tract symptoms as well as overall health and well-being. We also discussed bladder triggers and irritants. When asked he denies any signs or symptoms of sleep apnea. He reports having had a sleep study in the past that did not know sleep apnea. TWAN was offered however deferred. All questions were answered. He otherwise offers no other issues or concerns at this time. Urinary Symptoms Review - Increased frequency of urination, especially nocturnally, with three or fewer episodes per night - Sensation of incomplete bladder emptying - Weak urinary stream - Duration of symptoms for at least six months - Attempted fluid restriction before bedtime without significant improvement Discussion Notes During the visit, we discussed the patient's urinary symptoms and potential causes of these lower urinary tract symptoms. We also reviewed the elevated PSA levels and the potential need for further evaluation, including an ultrasound and repeat PSA testing. I advised the patient on lifestyle modifications that may help alleviate symptoms, such as reducing bladder triggers and irritants as well as attempting to sit when voiding to relax pelvis. We also discussed the importance of adequate hydration to prevent kidney stones. Follow-up appointments were planned to review test results and assess the effectiveness of the current management plan. ON LICENSE OF [facility] Medical History Benign prostate hyperplasia Irritable bowel syndrome Hypercholesterolemia Obesity (BMI 30.0-34.9) Otitis externa of both ears Osteoarthritis Bilateral hearing loss Lyme disease Left optic neuritis Fatigue Hypertension Surgical History History of ankle surgery H/O rectal polypectomy Family History Father Leukemia Mother Arthritis Brother Substance use disorder Arthritis Sister Arthritis Social History Household Members: None Housing: House Alcohol intake: current Alcohol intake frequency: a few times a week Patient Tobacco Use Status: Never used Tobacco e-Cigarette/Vaping Use: Never Used Second Hand Smoke Exposure: No service: No Current occupational status: employed 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 needs: No Hearing needs: No Vision needs: No Review of Systems Const All systems reviewed & are unremarkable except as noted in HPI and below Physical Exam Const General: cooperative, healthy appearing, comfortable, no acute distress, well developed, alert and awake Orientation/consciousness: patient oriented x3 Limitations: no limitations HEENT Head: Yes normal to inspection, Yes normocephalic and Yes atraumatic Ears: hearing grossly normal bilaterally Eyes General: appearance normal, both eyes and all related structures Neck Neck: Yes normal visual inspection and Yes trachea midline Chest Chest palpation & inspection: normal inspection of the chest Resp Effort & Inspection: normal respiratory effort and able to speak in complete sentences Cardio Rate: regular rate GI Inspection: Yes normal to inspection General: Yes no CVA tenderness Back/Spine/Pelvis Back: no CVA tenderness Skin General skin exam: no rashes or lesions noted Neuro General: patient oriented x3 Extrem General: Yes normal to inspection Psych Appearance: grossly normal and well kempt Mental Status: mental status grossly normal Speech and movement: Normal speech and movement present and Clear speech present Affect: normal affect Attitude: cooperative Thought process: Normal thought process present Thought content: Normal thought content present Insight: Fair insight present (Psych) Judgement: Fair judgement present (Psych) Assessment & Plan Assessment & Plan (1) Nephrolithiasis: Code(s): N20.0 - Calculus of kidney Category: Medical (2) Elevated PSA: Code(s): R97.20 - Elevated prostate specific antigen [PSA] Category: Medical (3) Weak urinary stream: Code(s): R39.12 - Poor urinary stream Category: Medical (4) Nocturia: Code(s): R35.1 - Nocturia Category: Medical (5) Feeling of incomplete bladder emptying: Code(s): R39.14 - Feeling of incomplete bladder emptying Category: Medical (6) Lower urinary tract symptoms: Code(s): R39.9 - Unspecified symptoms and signs involving the genitourinary system Category: Medical Plan In office urinalysis results reviewed with the patient today; as noted above. PVR 19 mL. Recent PSA results reviewed with the patient today; as noted above. TWAN was offered however deferred. We did discussed potential causes of nephrolithiasis, lower urinary tract symptoms, and elevated PSA; we discussed further treatment options and risks and benefits of these treatment options. We discussed lifestyle modifications to assist with lower urinary tract symptoms. All questions were answered. Will obtain retroperitoneal ultrasound for further assessment evaluation. Will obtain redraw of PSA with no sex the night before, no caffeine morning of, and no heavy lifting 1-2 days prior. Follow-up in 1-3 months with imaging and labs; or sooner with any issues, concerns, and or questions. Orders: Orders US retroperitoneal comp Today N20.0 - Calculus of kidney PSA,Total (Free>4and<10) Today R97.20 - Elevated prostate specific antigen [PSA] Patient Instructions: The patient had an opportunity to ask questions regarding the treatment plan. All questions were answered. Physical exam, labs, and imaging were discussed and reviewed in detail. As well as risks, benefits, and discussion of treatment choices. No major barriers to understanding were identified. The patient expressed understanding and agreement with the above treatment plan. The patient was made aware they should contact our office by phone for worsening of their current condition, the appearance of new symptoms, or with any questions or concerns. Compliance is encouraged with any medications and follow up testing that is ordered. It is a privilege to be allowed the opportunity to participate in? your urological care.? Again, if you have any questions or concerns If you have any questions or concerns please do not hesitate to contact me. The office is [phone]. This note is constructed using voice recognition software. While every effort has been made to ensure accuracy middleware consultant errors may have been included. Yours sincerely, MARIJA Rowe Coding Level of Care Code New Pt Level 3 (07435) Diagnoses Nephrolithiasis N20.0 Elevated PSA R97.20 Weak urinary stream R39.12 Nocturia R35.1 Feeling of incomplete bladder emptying R39.14 Lower urinary tract symptoms R39.9
--- OUTSIDE RECORDS SUMMARY | 2025-02-21 10:31 | XMS_ITS | Patient Health Record ---
Author Organization [facility] Address [address] [place] [address] Care Team Providers Care Marine Biologist Name Role Phone KATHY SOTELO Primary Care Provider Ranjit Putnam Unavailable [phone] Allergies No Known Allergies Results Component Value Reference Range Notes Calprotectin, Fecal (Not yet reviewed by provider) Interpretation: Performing Lab:[facility], [address] [place] [phone] Notes/Report: Calprotectin, Fecal 15 Reference Range: <50 Normal 50-120 Borderline >120 Elevated Calprotectin in Crohn's disease and ulcerative colitis can be five to several thousand times above the reference population (50 mcg/g or less). Levels are usually 50 mcg/g or less in healthy patients and with irritable bowel syndrome. Repeat testing in 4-6 weeks is suggested for borderline values. THIS TEST WAS PERFORMED AT: [facility] [address] [place] [address] EARL GAR MD,PHD,KEE GI PANEL (Not yet reviewed b y provider) Interpretation: Performing Lab:[facility], [address] [place] [phone] Notes/Report: Campylobacter Not Detected Not Detect. Plesiomonas shigelloides Not Detected Not Detect. Salmonella Not Detected Not Detect. Vibrio Not Detected Not Detect. Vibrio Cholerae Not Detected Not Detect. Yersinia enterocolitica Not Detected Not Detect. E. coli EAEC Not Detected Not Detect. E. coli EPEC Not Detected Not Detect. E. coli ETEC Not Detected Not Detect. E. coli STEC Not Detected Not Detect. E. coli O157 Not applicable Not Detect. E. coli containing the O157 antigen are a subset of Shiga-like toxin-producing E. coli (STEC). Shigella sp./EIEC Not Detected Not Detect. Cryptosporidium Not Detected Not Detect. Cyclospora cayetanensis Not Detected Not Detect. Entamoeba histolytica Not Detected Not Detect. Giardia lamblia Not Detected Not Detect. Adenovirus F 40/41 Not Detected Not Detect. Astrovirus Not Detected Not Detect. Norovirus GI/GII Not Detected Not Detect. Rotavirus A Not Detected Not Detect. Sapovirus Not Detected Not Detect. All results must be correlated with clinical findings. Negative results do not exclude the possibility of gastrointestinal infection and should not be used as the sole basis for diagnosis, treatment, or other management decisions. Virus, bacteria, and parasite nucleic acid may persist in vivo independently of organism viability. Additionally, some organisms may be carried asymptomatically. Detection of organism targets does not imply that the corresponding organisms are infectious or are the causative agents for clinical symptoms. There is a risk of false negative values due to the presence of sequence variants in the gene targets of the assay, amplification inhibitors in specimens, or inadequate numbers of organisms for amplification. The identification of several diarrheagenic E. coli pathotypes has historically relied upon phenotypic characteristics. This panel targets genetic determinants characteristic of most pathogenic strains, but may not detect all strains having phenotypic characteristics of a pathotype. The performance of this test has not been established for monitoring treatment of infection with any of the panel organisms. This assay is performed by Multiplexed PCR, utilizing the Jellyvision Array. Immunoglobulin A (Not yet re viewed by provider) Interpretation: Performing Lab:[address] [phone] Notes/Report: Immunoglobulin A 283 70-320 mg/dL THIS TEST WAS PERFORMED AT: [facility] [address] [place] [phone] GEO MELO MD Transglutaminase Ab IgG (Not yet reviewed by provider) Interpretation: Performing Lab:[address] [phone] Notes/Report: Transglutaminase Ab IgG <1.0 Value Interpretation ----- <15.0 Antibody not detected > or = 15.0 Antibody detected THIS TEST WAS PERFORMED AT: [facility] [address] [place] [phone] GEO MELO MD Transglutaminase IgA (Not ye t reviewed by provider) Interpretation: Performing Lab:[facility], [address] [place] [phone] Notes/Report: Transglutaminase IgA <1.0 Value Interpretation ----- <15.0 Antibody not detected > or = 15.0 Antibody detected THIS TEST WAS PERFORMED AT: [facility] [address] [place] [phone] GEO MELO MD Gliadin Ab Panel (Not yet re viewed by provider) Interpretation: Performing Lab:[address] [phone] Notes/Report: Gliadin Deamidated IgA Ab 15.9 Value Interpretation ----- <15.0 Antibody not detected > or = 15.0 Antibody detected Gliadin Deamidated IgG Ab <1.0 Value Interpretation ----- <15.0 Antibody not detected > or = 15.0 Antibody detected THIS TEST WAS PERFORMED AT: [facility] [address] [place] [phone] GEO MELO MD Endomysial IgA rflx Titer (N ot yet reviewed by provider) Interpretation: Performing Lab:[facility], [address] [place] [phone] Notes/Report: Endomysial IgA Antibody Negative Negative THIS TEST WAS PERFORMED AT: [facility] [address] [place], [place] TARYN GLORIA MD,PHD Endomysial Titer TNP CDiff Gene PCR (Not yet revi ewed by provider) Interpretation: Performing Lab:[address] [phone] Notes/Report: CDiff Gene PCR POSITIVE Negative Additional C. difficile toxin testing to be performed. CDiff Toxin (Not yet reviewe d by provider) Interpretation: Performing Lab:[facility], [address] [place] [phone] Notes/Report: CDiff Toxin Negative Negative CDIFF Interpretation SEE NOTE Likely C. difficile colonization. Continue contact precautions. Reason For Referral No Information Medications Medication SIG (Take, Route, Fr equency, Duration) Notes Start Date End Date Status Lisinopril 10 MG Oral for 30 A ctive Metamucil 0.36 GM as directed Orally Active Multivitamin Adults - as directed Orally once a day Active Vancocin 125 MG 1 capsule Orally 4 t imes a day for 10 days 02/14/2025 Active Immunizations Vaccine Route Administration Date Status [...] Problem Status W/U Status Risk Notes Problem [id number] Encounter for screening for malignant neoplasm of colon (Z12.11) Active confirmed Problem 728311112 History of adenomatous polyp of colon (Z86.010) Active confirmed Problem Diverticular disease of colon (015689294) Diverticulosis of large intestine without perforation or abscess without bleeding (K57.30) Active confirmed Problem [id number] Preprocedural examination (Z01.818) Active confirmed Problem 994693212 Tubulovillous adenoma of colon (D12.6) Active confirmed Vital Signs Blood pressure diastolic 77 mm Hg 01/25/2025 Height 71 in 01/25/2025 Blood pressure systolic 111 mm Hg 01/25/2025 Weight 254 lbs 01/25/2025 BMI 35.42 kg/m2 01/25/2025 Procedures Procedure Date Ordered Date Performed Result Body Sit e COLONOSCOPY 01/25/2025 N/A Encounters Encounter Location Date Provider Diagnosis [facility] [address] [place] [address] 01/25/2025 Ranjit Zhou Change in bowel habi t R19.4 ; Diarrhea R19.7 ; History of adenomatous polyp of colon Z86.010 ; Preprocedural examination Z01.818 ; Tubulovillous adenoma of colon D12.6 and Encounter for screening for malignant neoplasm of colon Z12.11 [facility] [address] [place] [address] 02/14/2025 Ranjit Zhou Assessments Encounter Date Diagnosis (ICD Code) Assessment [...] to become constipated. Full consent has been obtained from him for the colonoscopy, including risks [...] to become constipated. Full consent has been obtained from him for the colonoscopy, including risks [...] to become constipated. Full consent has been obtained from him for the colonoscopy, including risks [...] to become constipated. Full consent has been obtained from him for the colonoscopy, including risks [...] to become constipated. Full consent has been obtained from him for the colonoscopy, including risks [...] to become constipated. Full consent has been obtained from him for the colonoscopy, including risks [...] #10 01/25/2025 C DIFFICILE RFLX PCR 01/25/2025 Immunoglobulin A 01/25/2025 Transglutaminase Ab IgG 01/25/2025 Transglutaminase IgA 01/25/2025 Gliadin Ab Panel 01/25/2025 Endomysial IgA rflx Titer 01/25/2025 Calprotectin, Fecal 01/25/2025 Pathology 07/19/2022 CDiff Gene PCR 01/28/2025 CDiff Toxin 01/28/2025 GI PANEL 01/25/2025 Future Test Test Name Order Date COLONOSCOPY 12/24/2018 COLONOSCOPY 06/05/2022 Next Appt Details Provider Name:Ranjit Anil Zhou , 04/22/2025 12:30:00 PM, [address] [place] [address] , [place], [place], [phone], Insurance Providers Payer Name Payer Address Payer Phone Subscriber Number Group Number Insured Name Patient Relationship to Insured Coverage Start Date Coverage End Date [employer] PPO [address] [place], [place] [phone] [id number] BUD VELA Self - patient is the insured Medical (General) History Medical History History ICD Code Hypertension Emergent sigmoidoscopy with Dr. Blanco at [facility] in 02/2013 with removal of a nearly 4cm pedunculated tubulovillous adenoma on a long stalk from the distal sigmoid colon that had become incarcerated in the anal canal. I don't have any record of him having undergone a subsequent complete colonoscopy. Denies NH,DM,CVA,Lung disease,renal dise ase Colonoscopy 05/2019 with a 2 .5 cm tubulovillous adenoma removed from the sigmoid colon- site marked with ink Seeing a Urologist at [facility] in 02/2025 for BPH and PSA of 5 Had a negative ETT [address] [facility] Screening colonoscopy in Jul with removal of a small tubular adenoma from the ascending colon Surgical History Surgery Date(Month/Year) Hemorrhoids in 2012 Broken left ankle--has a plate with 6 sc rews 2000
--- OUTSIDE RECORDS SUMMARY | 2025-02-21 10:31 | XMS_ITS | Clinical Summary ---
Author Organization [facility] ity Address [address] [place] [address] Care Team Providers Care Laborer/Grade Check Name Role Phone Unavailable Primary Care Provider [...] 2013 Zoster Vaccines (1 of 2) 2013 Depression Screening 06/09/2024 COVID-19 Vaccine (1 - 2023-2 5 season) 2025 Influenza Vaccine (#1) 2025 RSV Immunization Adult [...]
== END 2025-02-21 09:44 | disposition home or self-care (01) ==
LOC: HO.HUSH 09:02
PROVIDERS: PCP Internal Medicine; Visit Provider Nurse Practitioner Family
DX: N20.0 Calculus of kidney (principal); R97.20 Elevated prostate specific antigen [PSA]; R39.12 Poor urinary stream; R35.1 Nocturia; R39.14 Feeling of incomplete bladder emptying; R39.9 Unspecified symptoms and signs involving the genitourinary system; Z13.9 Encounter for screening, unspecified
CPT/HCPCS: 99203

== ENCOUNTER → 2025-02-21 09:01 | Outpatient (BNVA) | payer OTHER, SELFPAY | PROVIDERS: PCP Internal Medicine; Visit Provider Nurse Practitioner Family | DX: N20.0 Calculus of kidney (principal) | CPT/HCPCS: 51798; 81003 ==

== ENCOUNTER 2025-04-14 11:25 | Outpatient (REF) | payer OTHER, SELFPAY ==
--- NOTE | ~2025-04-14 | US_ITS ---
CLINICAL HISTORY: N20.0 - Calculus of kidney US retroperitoneum with color Doppler Comparison: None Findings: Right kidney normal size and echotexture, 13.1 cm length. No hydronephrosis. Normal color flow. Nonobstructing caliceal stone midpole measuring 5 mm. No renal masses Left kidney normal size and echotexture, 13.1 cm in length. No hydronephrosis. Normal color flow. No nephrolithiasis. No renal masses. Urinary bladder is unremarkable. Prevoid volume 231.9 mL. Postvoid volume 12.8 mL. Ureteral jets are visualized bilaterally Prostate measures 5.5 x 6.4 x 4.7 cm. Central dystrophic calcifications are present. Impression: 1. Nephrolithiasis on the right 2. Borderline elevated postvoid residual 3. Prostate volume estimated at 86.8 mL This document has been electronically signed by: Bay Drummond MD on 04/15/2025 12:07:34
--- OUTSIDE RECORDS SUMMARY | 2025-04-14 14:21 | XMS_ITS | Patient Health Record ---
Author Organization [facility] Address [address] [place] [address] Care Team Providers Care Line Out Man Name Role Phone KATHY SOTELO Primary Care Provider Ranjit Putnam Unavailable [phone] Allergies No Known Allergies Results Component Value Reference Range Notes Calprotectin, Fecal (Not yet reviewed by provider) Interpretation: Performing Lab:[facility], [address] [place] [phone] Notes/Report: Calprotectin, Fecal 15 Reference Range: <50 [...] borderline values. THIS TEST WAS PERFORMED AT: [facility] [address] [place] [address] EARL GAR MD,PHD,KEE GI PANEL (Not yet reviewed b y provider) Interpretation: Performing Lab:[facility], [address] [place] [phone] Notes/Report: Campylobacter Not Detected Not Detect. Plesiomonas [...] is performed by Multiplexed PCR, utilizing the [employer] Array. Immunoglobulin A (Not yet re viewed by provider) Interpretation: Performing Lab:[address] [address] Notes/Report: Immunoglobulin A 283 70-320 mg/dL THIS TEST WAS PERFORMED AT: [facility] [address] [place] [phone] GEO MELO MD Transglutaminase Ab IgG (Not yet reviewed by provider) Interpretation: Performing Lab:[address] [address] Notes/Report: Transglutaminase Ab IgG <1.0 Value Interpretation ----- <15.0 Antibody not detected > or = 15.0 Antibody detected THIS TEST WAS PERFORMED AT: [facility] [address] [place] [phone] GEO MELO MD Transglutaminase IgA (Not ye t reviewed by provider) Interpretation: Performing Lab:[facility], [address] [place] [phone] Notes/Report: Transglutaminase IgA <1.0 Value Interpretation ----- <15.0 Antibody not detected > or = 15.0 Antibody detected THIS TEST WAS PERFORMED AT: [facility] [address] [place] [phone] GEO MELO MD Gliadin Ab Panel (Not yet re viewed by provider) Interpretation: Performing Lab:[address] [address] Notes/Report: Gliadin Deamidated IgA Ab 15.9 Value Interpretation ----- <15.0 Antibody not detected > or = 15.0 Antibody detected Gliadin Deamidated IgG Ab <1.0 Value Interpretation ----- <15.0 Antibody not detected > or = 15.0 Antibody detected THIS TEST WAS PERFORMED AT: [facility] [address] [place] [phone] GEO MELO MD Endomysial IgA rflx Titer (N ot yet reviewed by provider) Interpretation: Performing Lab:[facility], [address] [place] [phone] Notes/Report: Endomysial IgA Antibody Negative Negative THIS TEST WAS PERFORMED AT: [facility] [address] [place], [place] TARYN GLORIA MD,PHD Endomysial Titer TNP CDiff Gene PCR (Not yet revi ewed by provider) Interpretation: Performing Lab:[address] [address] Notes/Report: CDiff Gene PCR POSITIVE Negative Additional C. difficile toxin testing to be performed. CDiff Toxin (Not yet reviewe d by provider) Interpretation: Performing Lab:[facility], [address] [place] [phone] Notes/Report: CDiff Toxin Negative Negative CDIFF Interpretation SEE NOTE Likely C. difficile colonization. Continue contact precautions. Reason For Referral No Information Medications Medication SIG (Take, Route, Fr equency, Duration) Notes Start Date End Date Status Lisinopril 10 MG Oral; Duration: 30 Active Metamucil 0.36 GM as directed Orally Active Multivitamin Adults - as directed Orally once a day Active Vancocin 125 MG 1 capsule Orally 4 t imes a day; Duration: 10 days 02/14/2025 Active Immunizations Vaccine Route [...] Problem Status W/U Status Risk Notes Problem Screening for malignant neoplasm of colon (285497990) Encounter for screening for malignant neoplasm of colon (Z12.11) Active confirmed Problem History of adenomatous polyp of colon (853330849) History of adenomatous polyp of colon (Z86.010) Active confirmed Problem Diverticular disease of colon (118484030) Diverticulosis of large intestine without perforation or abscess without bleeding (K57.30) Active confirmed Problem Preprocedural examination (002343465760470) Preprocedural examination (Z01.818) Active confirmed Problem Tubulovillous adenoma of colon (3621036067) Tubulovillous adenoma of colon (D12.6) Active confirmed Vital Signs Blood pressure diastolic 77 mm Hg 01/25/2025 Height 71 in 01/25/2025 Blood pressure systolic 111 mm Hg 01/25/2025 Weight 254 lbs 01/25/2025 BMI 35.42 kg/m2 01/25/2025 Procedures Procedure Date Ordered Date Performed Result Body Sit e COLONOSCOPY 01/25/2025 N/A Encounters Encounter Location Date Provider Diagnosis [facility] [address] [place] [address] 01/25/2025 Ranjit Zhou Change in bowel habi t R19.4 ; Diarrhea R19.7 ; History of adenomatous polyp of colon Z86.010 ; Preprocedural examination Z01.818 ; Tubulovillous adenoma of colon D12.6 and Encounter for screening for malignant neoplasm of colon Z12.11 [facility] [address] [place] [address] 02/14/2025 Ranjit Zhou Assessments Encounter Date Diagnosis [...] Provider Name:Ranjit Zhou , 04/22/2025 12:30:00 PM, [address] [place] [address] , [place], [phone], Insurance Providers Payer Name Payer Address Payer Phone Subscriber Number Group Number Insured Name Patient Relationship to Insured Coverage Start Date Coverage End Date Nichole PPO [address] [place], [place] [phone] [id number] DANE BUD Self - patient is the insured Medical (General) History Medical History History ICD Code Hypertension Emergent sigmoidoscopy with Dr. Blanco at [facility] in 02/2013 with removal of a nearly 4cm pedunculated tubulovillous adenoma on a long stalk from the distal sigmoid colon that had become incarcerated in the anal canal. I don't have any record of him having undergone a subsequent complete colonoscopy. Denies [place],DM,CVA,Lung disease,renal dise ase Colonoscopy 05/2019 with a 2 .5 cm tubulovillous adenoma removed from the sigmoid colon- site marked with ink Seeing a Urologist at [facility] in 02/2025 for BPH and PSA of 5 Had a negative ETT 2024 at [facility] Screening colonoscopy in Jul ru2022 with removal of a small tubular adenoma from the ascending colon Surgical History Surgery Date(Month/Year) Hemorrhoids in 2012 Broken left ankle--has a plate with 6 sc rews 2000
--- OUTSIDE RECORDS SUMMARY | 2025-04-14 14:21 | XMS_ITS | Clinical Summary ---
Author Organization [facility] it[facility] Address [address] [place] [address] Care Team Providers Care Pipe Supervisor Name Role Phone Unavailable Primary Care Provider [...]
== END 2025-04-14 11:26 | disposition home or self-care (01) ==
LOC: HO.US 11:25
PROVIDERS: PCP Internal Medicine; Visit Provider Nurse Practitioner Family
DX: N20.0 Calculus of kidney (principal)
CPT/HCPCS: 76770

== ENCOUNTER → 2025-04-14 11:27 | Outpatient (BNV) | payer OTHER, SELFPAY | PROVIDERS: PCP Internal Medicine; Visit Provider Radiology Diagnostic Radiology | DX: N20.0 Calculus of kidney (principal); R33.9 Retention of urine, unspecified | CPT/HCPCS: 76770 ==

== ENCOUNTER 2025-04-22 09:11 | Day surgery (SDC) | payer OTHER, SELFPAY ==
--- OUTSIDE RECORDS SUMMARY | 2025-03-01 09:15 | XMS_ITS | Patient Health Record ---
Author Organization [facility] Address [address] [place] [address] Care Team Providers Care Pony Worker Name Role Phone KATHY SOTELO Primary Care Provider Ranjit Putnam Unavailable [phone] Allergies No Known Allergies Results Component Value Reference Range Notes Calprotectin, Fecal (Not yet reviewed by provider) Interpretation: Performing Lab:[facility], [address] [place] [phone] Notes/Report: Calprotectin, Fecal 15 Reference Range: <50 [...] borderline values. THIS TEST WAS PERFORMED AT: [facility] [address] [place] [address] EARL GAR MD,PHD,KEE GI PANEL (Not yet reviewed b y provider) Interpretation: Performing Lab:[facility], [address] [place] [phone] Notes/Report: Campylobacter Not Detected Not Detect. Plesiomonas [...] is performed by Multiplexed PCR, utilizing the [employer] Array. Immunoglobulin A (Not yet re viewed by provider) Interpretation: Performing Lab:[address] [address] Notes/Report: Immunoglobulin A 283 70-320 mg/dL THIS TEST WAS PERFORMED AT: [facility] [address] [place] [phone] GEO MELO MD Transglutaminase Ab IgG (Not yet reviewed by provider) Interpretation: Performing Lab:[address] [address] Notes/Report: Transglutaminase Ab IgG <1.0 Value Interpretation ----- <15.0 Antibody not detected > or = 15.0 Antibody detected THIS TEST WAS PERFORMED AT: [facility] [address] [place] [phone] GEO MELO MD Transglutaminase IgA (Not ye t reviewed by provider) Interpretation: Performing Lab:[facility], [address] [place] [phone] Notes/Report: Transglutaminase IgA <1.0 Value Interpretation ----- <15.0 Antibody not detected > or = 15.0 Antibody detected THIS TEST WAS PERFORMED AT: [facility] [address] [place] [phone] GEO MELO MD Gliadin Ab Panel (Not yet re viewed by provider) Interpretation: Performing Lab:[address] [address] Notes/Report: Gliadin Deamidated IgA Ab 15.9 Value Interpretation ----- <15.0 Antibody not detected > or = 15.0 Antibody detected Gliadin Deamidated IgG Ab <1.0 Value Interpretation ----- <15.0 Antibody not detected > or = 15.0 Antibody detected THIS TEST WAS PERFORMED AT: [facility] [address] [place] [phone] GEO MELO MD Endomysial IgA rflx Titer (N ot yet reviewed by provider) Interpretation: Performing Lab:[facility], [address] [place] [phone] Notes/Report: Endomysial IgA Antibody Negative Negative THIS TEST WAS PERFORMED AT: [facility] [address] [place], [place] TARYN GLORIA MD,PHD Endomysial Titer TNP CDiff Gene PCR (Not yet revi ewed by provider) Interpretation: Performing Lab:[address] [address] Notes/Report: CDiff Gene PCR POSITIVE Negative Additional C. difficile toxin testing to be performed. CDiff Toxin (Not yet reviewe d by provider) Interpretation: Performing Lab:[facility], [address] [place] [phone] Notes/Report: CDiff Toxin Negative Negative CDIFF Interpretation [...] Problem Status W/U Status Risk Notes Problem [id number] Encounter for screening for malignant neoplasm of colon (Z12.11) Active confirmed Problem 370430175 History of adenomatous polyp of colon (Z86.010) Active confirmed Problem Diverticular disease of colon (899891642) Diverticulosis of large intestine without perforation or abscess without bleeding (K57.30) Active confirmed Problem 673061875872076 Preprocedural examination (Z01.818) Active confirmed Problem 843276094 Tubulovillous adenoma of colon (D12.6) Active confirmed Vital Signs Blood pressure diastolic 77 mm Hg 01/25/2025 Height 71 in 01/25/2025 Blood pressure systolic 111 mm Hg 01/25/2025 Weight 254 lbs 01/25/2025 BMI 35.42 kg/m2 01/25/2025 Procedures Procedure Date Ordered Date Performed Result Body Sit e COLONOSCOPY 01/25/2025 N/A Encounters Encounter Location Date Provider Diagnosis [facility] [address] [place] [address] 01/25/2025 Ranjit Zhou Change in bowel habi t R19.4 ; Diarrhea R19.7 ; History of adenomatous polyp of colon Z86.010 ; Preprocedural examination Z01.818 ; Tubulovillous adenoma of colon D12.6 and Encounter for screening for malignant neoplasm of colon Z12.11 [facility] [address] [place] [address] 02/14/2025 Ranjit Zhou Assessments Encounter Date Diagnosis [...] Name:Ranjit Anil Zhou , 04/22/2025 12:30:00 PM, [address] [place] [address] , [place], [place], [phone], Insurance Providers Payer Name Payer Address Payer Phone Subscriber Number Group Number Insured Name Patient Relationship to Insured Coverage Start Date Coverage End Date [employer] PPO [address] [place], [place] [phone] [id number] BUD VELA Self - patient is the insured Medical (General) History Medical History History ICD Code Hypertension Emergent sigmoidoscopy with Dr. Blanco at [facility] in 02/2013 with removal of a nearly 4cm pedunculated tubulovillous adenoma on a long stalk from the distal sigmoid colon that had become incarcerated in the anal canal. I don't have any record of him having undergone a subsequent complete colonoscopy. Denies [place],DM,CVA,Lung disease,renal dise ase Colonoscopy 05/2019 with a 2 .5 cm tubulovillous adenoma removed from the sigmoid colon- site marked with ink Seeing a Urologist at [facility] in 02/2025 for BPH and PSA of 5 Had a negative ETT 2024 at [facility] Screening colonoscopy in Jul with removal of a small tubular adenoma from the ascending colon Surgical History Surgery Date(Month/Year) Hemorrhoids in 2012 Broken left ankle--has a plate with 6 sc rews 2000
--- OUTSIDE RECORDS SUMMARY | 2025-03-01 09:15 | XMS_ITS | Clinical Summary ---
Author Organization [facility] Address [address] [place] [address] Care Team Providers Care Marine Engineering Teacher Name Role Phone Unavailable Primary Care Provider [...]
--- NOTE | 2025-04-19 14:13 | HO.ANESPROP2 ---
Documented by User: Cheli Jay NP 04/19/25 14:14 HPI - Anesthesia Eval Consult details Narrative: 60 yr old male for colonoscopy PMF Active Problems Active Problems: All Active Problems Lower urinary tract symptoms (Acute) Feeling of incomplete bladder emptying (Acute) Nocturia (Acute) Weak urinary stream (Acute) Elevated PSA (Acute) Nephrolithiasis (Acute) Benign prostate hyperplasia (Acute) Irritable bowel syndrome (Acute) Nausea vomiting and diarrhea (Acute) Hypercholesterolemia (Acute) Obesity (BMI 30.0-34.9) (Acute) Otitis externa of both ears (Acute) Leg pain, bilateral (Acute) Shoulder pain, right (Acute) Osteoarthritis (Acute) Bilateral hearing loss (Acute) Lyme disease (Acute) Left optic neuritis (Acute) Fatigue (Acute) Hypertension (Acute) Past Medical History Medical History Hx of sigmoidoscopy (2012) Benign prostate hyperplasia Irritable bowel syndrome Hypercholesterolemia Obesity (BMI 30.0-34.9) Otitis externa of both ears Osteoarthritis Bilateral hearing loss Lyme disease Left optic neuritis Fatigue Hypertension Family History Family History Father Leukemia Mother Arthritis Brother Substance use disorder Arthritis Sister Arthritis Surgical History Surgical History Hx of hemorrhoidectomy (2012) Hx of colonoscopy (07/2022) History of ankle surgery (2000) H/O rectal polypectomy Social History Social History Household Members: None Housing: House Alcohol intake: current Alcohol intake frequency: a few times a week Patient Tobacco Use Status: Never used Tobacco e-Cigarette/Vaping Use: Never Used Second Hand Smoke Exposure: No Use of substances other than those prescribed or required for medical reasons: No Are you DNR?: No Advance Directives: No Advance Directives Information Provided: Yes service: No Current occupational status: employed 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 needs: No Hearing needs: No Vision needs: No Meds Allergies Allergy/AdvReac Type Severity Reaction Status Date / Time No Known Allergies Allergy Verified 02/21/25 09:17 Exam Pertinent Lab Results Pertinent Lab Results: Laboratory Tests 11/25/24 09:00 WBC 10.6 RBC 5.35 Hgb 16.5 Hct 47.5 Plt Count 220 Sodium 141 Potassium 3.7 BUN 21 H Creatinine 0.81 Documented by User: Lisa Lehman MD 04/22/25 10:26 PMF Past Medical History Medical History Hx of sigmoidoscopy (2012) Benign prostate hyperplasia Irritable bowel syndrome Hypercholesterolemia Obesity (BMI 30.0-34.9) Otitis externa of both ears Osteoarthritis Bilateral hearing loss Lyme disease Left optic neuritis Fatigue Hypertension Family History Family History Father Leukemia Mother Arthritis Brother Substance use disorder Arthritis Sister Arthritis Surgical History Surgical History Hx of hemorrhoidectomy (2012) Hx of colonoscopy (07/2022) History of ankle surgery (2000) H/O rectal polypectomy History of Problems with Anesthesia: No Social History Social History Household Members: None Housing: House Alcohol intake: current Alcohol intake frequency: a few times a week Patient Tobacco Use Status: Never used Tobacco e-Cigarette/Vaping Use: Never Used Second Hand Smoke Exposure: No Use of substances other than those prescribed or required for medical reasons: No Are you DNR?: No Advance Directives: No Advance Directives Information Provided: Yes service: No Current occupational status: employed 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 needs: No Hearing needs: No Vision needs: No Meds Allergies Allergy/AdvReac Type Severity Reaction Status Date / Time No Known Allergies Allergy Verified 02/21/25 09:17 Exam Airway Mallampati Class: III TM Dist: >3cm Neck ROM: Full Loose/Missing/Broken Teeth: No Heart: RRR Lungs: CTA Assessment and Plan Assessment Anesthesia Assessment: Anesthesia Plan Discussed and Chart Reviewed Final Anesthetic Review History of Problems with Anesthesia: No NPO: Yes ASA Class: II Final Preanesthetic Review: Meds/Allgs Chart Reviewed, Consent Obtained/Reviewed and Anes Risks/Benef Reviewed Patient Risk: Low Procedure Risk: Low Anesthetic Plan Anesthetic Plan: MAC: Disposition: Standard PACU
[2025-04-20 14:21] VITALS: BMI 35.4
[2025-04-22 09:35] VITALS: BMI 36.3
[2025-04-22 09:50] VITALS: BP 149/103; PULSE 81; RESP 21; TEMP 36.7; O2SAT 96
[2025-04-22] MEDS: Lactated Ringers 1,000 ML 100 ML IVCONT (10:02)
[2025-04-22 12:30] VITALS: BP 98/68; PULSE 75; RESP 18; TEMP 37; O2SAT 97
--- NOTE | 2025-04-22 12:32 | PM.OP ---
Brief Operative Note Date of Service: 04/22/25 Pre-op diagnosis: Screening Post-op diagnosis: other (Diverticulosis) Procedure: Colonoscopy to the cecum Surgeon: Ranjit Zhou MD Anesthesia: MAC Was an Pourer Buggy Ladle used for this Procedure?: No Estimated blood loss (mL): 0 Pathology: none sent Condition: stable Disposition: PACU
[2025-04-22 12:45] VITALS: BP 123/76; PULSE 69; RESP 23; O2SAT 95
[2025-04-22 13:00] VITALS: BP 141/89; PULSE 69; RESP 18; TEMP 37; O2SAT 97
--- NOTE | 2025-04-22 13:12 | OP_ITS ---
DATE OF SERVICE: 04/22/2025 SURGEON: Ranjit Zhou MD INDICATIONS: The patient presents for followup of personal history of tubular adenomas and tubulovillous adenoma of the colon. Full consent has been obtained from him for this, including risks of bleeding and perforation. PREOPERATIVE DIAGNOSIS: POSTOPERATIVE DIAGNOSIS: PROCEDURE PERFORMED: Colonoscopy to the cecum. ESTIMATED BLOOD LOSS: COMPLICATIONS: ANESTHESIA: Medication used, monitored anesthesia care. ASSISTANTS: SPECIMENS: PREOPERATIVE DIAGNOSES: Personal history of colon polyps and colorectal cancer screening. POSTOPERATIVE DIAGNOSES: Personal history of colon polyps and colorectal cancer screening, diverticulosis, and internal hemorrhoids. DESCRIPTION OF PROCEDURE: The patient was placed in the left lateral decubitus position. The digital rectal exam revealed no abnormalities. The Olympus video pediatric colonoscope was entered into the rectum and advanced easily to the cecum. Once in the cecum, I did identify normal-appearing cecal pouch with appendiceal orifice and a normal-appearing ileocecal valve. The entire cecum and ileocecal valve appeared normal. The scope was then slowly withdrawn assessing all mucosal surfaces carefully. I did not visualize any sign of polyps, colitis nor angiodysplasias. There was a mild amount of sigmoid diverticulosis. Once in the rectum. the scope was retroflexed visualizing internal hemorrhoids, but no other pathology. The rectal mucosa appeared normal. The scope was straightened and withdrawn from the patient. He tolerated the procedure well and was returned to the recovery area in stable condition. IMPRESSION: 1. Diverticulosis. 2. Internal hemorrhoids. PLAN: Given his previous history. I would recommend a repeat colonoscopy in 3 years for further screening and surveillance. Of note, when I saw him in the office back in January, he had been having frequent episodes of diarrhea, but a stool specimen came back positive for C difficile gene, although the C diff toxin was negative. Nonetheless, I treated him with a course of vancomycin, and he does report that made a significant difference for him and presently is not having any further significant diarrhea. As such, I did not do any biopsies to rule out underlying colitis given the otherwise normal appearance of the colon and resolution of his symptoms. MD PATRICIO Dunaway/[facility] / [id number] GENEVIEVE
== END 2025-04-22 13:22 | disposition home or self-care (01) ==
PROVIDERS: PCP Internal Medicine; Visit Provider Internal Medicine
PROC: 0DJD8ZZ Inspection of Lower Intestinal Tract, Via Natural or Artificial Opening Endoscopic (ICD-10-PCS; CPT 45378; principal; 2025-04-22 10:30)
DX: Z12.11 Encounter for screening for malignant neoplasm of colon (principal); Z86.0101 Personal history of adenomatous and serrated colon polyps; K57.30 Diverticulosis of large intestine without perforation or abscess without bleeding; K64.8 Other hemorrhoids; K58.9 Irritable bowel syndrome, unspecified; N40.0 Benign prostatic hyperplasia without lower urinary tract symptoms; I10 Essential (primary) hypertension; Z86.19 Personal history of other infectious and parasitic diseases; Z79.899 Other long term (current) drug therapy; Z98.890 Other specified postprocedural states
CPT/HCPCS: 45378; J2003; J2704